=== PATIENT | female | born 1945 | race Caucasian/White ===

== ENCOUNTER 2016-06-02 13:56 | Outpatient (CLI) | END 2016-06-02 13:57 | disposition home or self-care (01) ==

== ENCOUNTER 2016-06-14 15:14 | Outpatient (CLI) | payer MEDICARE, OTHER | END 2016-06-14 15:15 | disposition home or self-care (01) | DX: I48.0 Paroxysmal atrial fibrillation (principal) ==

== ENCOUNTER 2016-06-29 13:30 | Outpatient (CLI) | payer MEDICARE, OTHER | END 2016-06-29 13:31 | disposition home or self-care (01) | DX: I48.0 Paroxysmal atrial fibrillation (principal); I50.32 Chronic diastolic (congestive) heart failure ==

== ENCOUNTER 2016-07-11 14:43 | Outpatient (CLI) | payer MEDICARE, OTHER | END 2016-07-11 14:44 | disposition home or self-care (01) | DX: I48.0 Paroxysmal atrial fibrillation (principal) ==

== ENCOUNTER 2016-07-14 11:02 | Outpatient (CLI) | payer MEDICARE, OTHER | END 2016-07-14 11:03 | disposition home or self-care (01) | DX: I48.0 Paroxysmal atrial fibrillation (principal) ==

== ENCOUNTER 2016-07-19 11:00 | Outpatient (CLI) | payer MEDICARE, OTHER | END 2016-07-19 11:01 | disposition home or self-care (01) | DX: I48.0 Paroxysmal atrial fibrillation (principal) ==

== ENCOUNTER 2016-08-10 08:00 | Outpatient (CLI) | payer MEDICARE, OTHER | END 2016-08-10 23:59 | DX: I48.0 Paroxysmal atrial fibrillation (principal) ==

== ENCOUNTER 2016-08-26 11:05 | Outpatient (CLI) | payer MEDICARE, OTHER | END 2016-08-26 11:06 | disposition home or self-care (01) | DX: I48.0 Paroxysmal atrial fibrillation (principal) ==

== ENCOUNTER 2016-09-05 08:23 | Outpatient (CLI) | payer MEDICARE, OTHER | END 2016-09-05 08:24 | disposition home or self-care (01) | DX: I48.0 Paroxysmal atrial fibrillation (principal) ==

== ENCOUNTER 2016-09-22 15:45 | Outpatient (CLI) | payer MEDICARE, OTHER | END 2016-09-22 23:59 | DX: I48.0 Paroxysmal atrial fibrillation (principal) ==

== ENCOUNTER 2016-10-01 09:49 | Emergency (ER) | payer MEDICARE, OTHER ==
[2016-10-01 09:58] VITALS: BP 111/71
--- NOTE | 2016-10-01 10:44 | XRAY Preliminary Report ---
Exam: XR Wrist 4 View LT IMPRESSION: Soft tissue swelling about the distal radius, ulna and carpus without underlying acute namrata ne or joint abnormality. [facility] SITE ID: [id number]
--- NOTE | 2016-10-01 10:46 | XRAY Report ---
EXAM: LEFT WRIST RADIOGRAPHY, 4 VIEWS EXAM DATE: 10/01/2016 10:29 AM. CLINICAL HISTORY: 71-year-old female post fall with left wrist pain. COMPARISON: None. TECHNIQUE: 3 views. FINDINGS: Bones: Small degenerative cysts in the lunate. Otherwise unremarkable. No fractures or acute bone les ions. 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 Joint spaces otherwise unremarkab le. No subluxations. Soft Tissues: Mild soft tissue swelling about the distal radius, ulna and carpus. No soft tissue gas or foreign body. IMPRESSION: Soft tissue swelling about the distal radius, ulna and carpus without underlying acute namrata ne or joint abnormality. [facility] Referring Provider Line: [phone] SITE ID: [id number]
[2016-10-01] MEDS ORDERED: HYDROcod/ACETAM 5/325 MG TABLET PO STA (12:22)
[2016-10-01] MEDS ORDERED: HYDROcod/ACETAM 5/325 MG TABLET ONE (12:24)
--- NOTE | 2016-10-01 12:24 | ED Physician Documentation ---
PD HPI UPPER EXT INJURY - Stated complaint Stated Complaint: L WRIST PAIN - Chief complaint Chief Complaint: Ext Problem - History obtained from History obtained from: Patient - History of Present Illness Location: Left (Fall on outstretched left wrist 5 days ago, developed increasing pain and swelling last night. 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 : None HEENT: None Psych: None Musculoskeletal: None Derm: None - Past Surgical History Past Surgical History: Yes Cardiovascular: Valve replacement - Present Medications Home Medications: Ambulatory Orders Medication Instructions Recorded Confirmed Albuterol Sulfate [Ventolin Hfa] 1 spray PO DAILY 07/13/15 07/13/15 Bupropion HCl [Bupropion HCl Sr] 150 mg PO DAILY 07/13/15 07/13/15 Citalopram [CeleXA] 40 mg PO DAILY 07/13/15 07/13/15 Docusate Sodium 250Mg Capsule 250 mg PO DAILY 07/13/15 07/13/15 [Colace 250Mg Capsule] Fluticasone Propionate [Flonase 1 spray PO DAILY 07/13/15 07/13/15 Allergy Relief] Folic Acid 1 mg PO DAILY 07/13/15 07/13/15 Furosemide 80 mg PO DAILY 07/13/15 07/13/15 Lipase/Protease/Amylase [Zenpep Dr 1 tab PO DAILY 07/13/15 07/13/15 10,000 Units Capsule] Metoprolol Tartrate 25 mg PO DAILY 07/13/15 07/13/15 Montelukast Sodium 10 mg PO DAILY 07/13/15 07/13/15 Musinex 1 tab PO DAILY 07/13/15 07/13/15 Nitroglycerin [Nitrostat] 0.4 mg PO DAILY 07/13/15 10/01/16 Potassium Chloride 20 meq PO DAILY 07/13/15 07/13/15 Pramipexole [Mirapex] 0.25 mg PO DAILY 07/13/15 07/13/15 Pravastatin Sodium 40 mg PO DAILY 07/13/15 07/13/15 Senna [Senokot] 8.6 mg PO DAILY 07/13/15 10/01/16 Vit D 1 tab PO DAILY 07/13/15 10/01/16 Warfarin Sodium 7.5 mg PO DAILY 07/13/15 10/01/16 HYDROcod/ACETAM 5/325 [[place] 5/325] 1 - 2 ea PO Q6H PRN #15 tablet 10/01/16 - Allergies Allergies/Adverse Reactions: Allergies Allergy/AdvReac Type Severity Reaction Status Date / Time meperidine HCl * Allergy Unknown Verified 07/13/15 14:50 [From Demerol] - Social History Does the pt smoke?: No Smoking Status: Never smoker Does the pt drink ETOH?: No Does the pt have substance abuse?: No - Immunizations Immunizations are current?: Yes - POLST Patient has POLST: No PD ED PE NORMAL - Vitals Vital signs reviewed: Yes - General General: Alert and oriented X 3, No acute distress - Neck Neck: Supple, no meningeal sign, No bony TTP - Extremities Extremities: Other (Dorsal wrist is mildly tender and swollen and she has difficulty with range of motion, NVI in the hand) - Neuro Neuro: Alert and oriented X 3, Normal speech - Psych Psych: Normal mood, Normal affect Results - Vitals Vitals: Vital Signs - 24 hr 10/01/16 09:55 Temperature 35.3 C L Heart Rate 75 Respiratory 18 Rate Blood Pressure 111/71 O2 Saturation 100 Oxygen O2 Source Room air - Rads (name of study) 4 view left wrist Radiology: EMP read contemporaneously (negative except swelling) Departure - Departure Disposition: 01 Home, Self Care Clinical Impression: Left wrist sprain Qualifiers: Encounter type: initial encounter Qualified Code(s): S63.502A - Unspecified sprain of left wrist, initial encounter Condition: Good Record reviewed to determine appropriate education?: Yes Instructions: ED Sprain Wrist, ED Splint Care Velcro Follow-Up: [facility] [Provider Group] - Within 1 week Prescriptions: HYDROcod/ACETAM 5/325 [[place] 5/325] 1 - 2 ea PO Q6H PRN #15 tablet PRN Reason: Pain Comments: Do not drink or drive while on narcotic pain medicine. Note that many narcotic pain relievers also contain tylenol/acetaminophen. Please ensure that your total dose of acetaminophen from all sources does not exceed 3 grams (3000mg) per day. You may constipated on this medication, take a stool softener such as "Colace" twice a day while you are on it. Also recommend a [id number] laxative such as senna or MiraLAX any day that you do not have a bowel movement. If you received narcotic pain medication in the emergency department, do not drive or operate machinery for the next 24 hours.
--- NOTE | 2016-10-01 18:00 | ED Physician Documentation ---
ED Addendum - Addendum Addendum: 10/01/16 18:00 She called in, pain is not controlled by Vicodin. She wondered if it might be gout. I discussed with her that was our diagnosis to make given her anticoagulated status, best test would be arthrocentesis. Regardless she wanted to try some gout medicine given that she's had ongoing occasional issues with the left big toe which might be gout as well. She was called in a prescription for colchicine, 0.6 mg #4 and Indocin 50 mg one tablet twice a day as needed #8.
== END 2016-10-01 12:34 | disposition home or self-care (01) ==
LOC: ED 09:49
DX: S63.502A Unspecified sprain of left wrist, initial encounter (principal); W19.XXXA Unspecified fall, initial encounter; Z95.2 Presence of prosthetic heart valve; Z79.01 Long term (current) use of anticoagulants
CPT/HCPCS: 73110; 99283; A9270

== ENCOUNTER 2016-10-01 21:58 | Emergency (ER) | payer MEDICARE, OTHER ==
--- NOTE | 2016-10-01 22:06 | ED Physician Documentation ---
History of Present Illness - Stated complaint Stated Complaint: L WRIST PAIN - Chief complaint Chief Complaint: Ext Problem - History obtained from History obtained from: Patient - History of Present Illness Timing: Yesterday Pain level max: 10 Pain level now: 10 Improved by: rest (keeping the wrist still) Worsened by: movement, palpation - Additonal information Additional information: c/o left wrist pain, gradual onset since yesterday morning, progressive in intensity and with increasing swelling decreasing ROM. She was T+R earlier today from this ED for same c/o, unremarkable xrays, rx vicodin. She returns due to inadequate pain relief with the vicodin. 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 HEENT: None Psych: None Musculoskeletal: None Derm: None - Past Surgical History Past Surgical History: Yes Cardiovascular: Valve replacement - Present Medications Home Medications: Ambulatory Orders Medication Instructions Recorded Confirmed Albuterol Sulfate [Ventolin Hfa] 1 spray PO DAILY 07/13/15 10/01/16 Bupropion HCl [Bupropion HCl Sr] 150 mg PO DAILY 07/13/15 10/01/16 Citalopram [CeleXA] 40 mg PO DAILY 07/13/15 10/01/16 Docusate Sodium 250Mg Capsule 250 mg PO DAILY 07/13/15 10/01/16 [Colace 250Mg Capsule] Fluticasone Propionate [Flonase 1 spray PO DAILY 07/13/15 10/01/16 Allergy Relief] Folic Acid 1 mg PO DAILY 07/13/15 10/01/16 Furosemide 80 mg PO DAILY 07/13/15 10/01/16 Lipase/Protease/Amylase [Zenpep Dr 1 tab PO DAILY 07/13/15 10/01/16 10,000 Units Capsule] Metoprolol Tartrate 25 mg PO DAILY 07/13/15 10/01/16 Montelukast Sodium 10 mg PO DAILY 07/13/15 10/01/16 Musinex 1 tab PO DAILY 07/13/15 10/01/16 Nitroglycerin [Nitrostat] 0.4 mg PO DAILY 07/13/15 10/01/16 Potassium Chloride 20 meq PO DAILY 07/13/15 10/01/16 Pramipexole [Mirapex] 0.25 mg PO DAILY 07/13/15 10/01/16 Pravastatin Sodium 40 mg PO DAILY 07/13/15 10/01/16 Senna [Senokot] 8.6 mg PO DAILY 07/13/15 10/01/16 Vit D 1 tab PO DAILY 07/13/15 10/01/16 Warfarin Sodium 7.5 mg PO DAILY 07/13/15 10/01/16 HYDROcod/ACETAM 5/325 [[place] 5/325] 1 - 2 ea PO Q6H PRN #15 tablet 10/01/1611/12 oxyCODONE/ACET 5/325 [Percocet 5 1 - 2 each PO Q6H PRN #14 tablet 10/02/16 mg/325 mg] - Allergies Allergies/Adverse Reactions: Allergies Allergy/AdvReac Type Severity Reaction Status Date / Time meperidine HCl * Allergy Unknown Verified 10/01/16 22:10 [From Demerol] - Social History Does the pt smoke?: No Smoking Status: Never smoker Does the pt drink ETOH?: No Does the pt have substance abuse?: No - Immunizations Immunizations are current?: Yes - POLST Patient has POLST: No PD ED PE NORMAL - Vitals Vital signs reviewed: Yes - General General: Alert and oriented X 3, Well developed/nourished, Other (appears to be in painful distress) - Neuro Neuro: No motor deficit, No sensory deficit PD ED PE EXPANDED - Extremities Extremities: Other (left wrist with mild-moderate swelling (predominantly dorsal aspect, extends to proximal hand), faint erythema, not increased warmth to touch compared to other wrist. very limited ROM (flex/ext) due to pain. mod- severe tenderness to palpation) Results - Vitals Vitals: Vital Signs - 24 hr 10/01/16 10/02/16 10/02/16 22:01 00:08 01:07 Temperature 37.5 C Heart Rate 75 76 75 Respiratory 16 15 15 Rate Blood Pressure 150/74 H 107/59 L 111/49 L O2 Saturation 100 99 96 Oxygen O2 Source Room air - Labs Labs: Laboratory Tests 10/01/16 10/01/16 10/01/16 22:24 22:41 22:41 WBC 9.2 RBC 4.11 L Hgb 13.4 Hct 39.7 MCV 96.8 MCH 32.7 H MCHC 33.8 RDW 13.7 Plt Count 196 MPV 8.8 Neut # 5.8 Lymph # 2.4 [place] # 0.9 Eos # 0.1 Baso # 0.0 Absolute Nucleated RBC 0.00 Nucleated RBCs 0.0 ESR 18 PT INR APTT C-Reactive Protein 1.8 H 10/01/16 22:41 WBC RBC Hgb Hct MCV MCH MCHC RDW Plt Count MPV Neut # Lymph # [place] # Eos # Baso # Absolute Nucleated RBC Nucleated RBCs ESR PT 79.0 H INR 6.9 H* APTT 62.9 H C-Reactive Protein PD MEDICAL DECISION MAKING - ED course Complexity details: reviewed old records, reviewed results, re-evaluated patient , considered differential, d/w patient ED course: afebrile, normal WBC and ESR, minimally elevated CRP. Good pain control was eventually achieved with multiple medications (indomethacin, colchicine, ativan , oxycodone, and dilaudid) Departure - Departure Disposition: Home, Self Care Clinical Impression: Arthritis Condition: Good Instructions: ED Arthritis Gout, ED Diet Gout Follow-Up: Juan José Kincaid MD [Primary Care Provider] - (Call Monday morning to arrange for next available appointment) Prescriptions: oxyCODONE/ACET 5/325 [Percocet 5 mg/325 mg] 1 - 2 each PO Q6H PRN #14 tablet PRN Reason: Pain Comments: You can take the percocet (oxycodone/acetaminophen) INSTEAD OF the Vicodin ( hydrocodone/acetaminophen); most people find percocet is more effective/ stronger for pain relief. 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 Capps faxed to your pharmacy later this morning when the pharmacy opens, and take those medications as prescribed. Your INR ("coumadin level") was a little higher than it is supposed to be. I recommend that you skip tonight's coumadin dose and resume taking it tomorrow evening (resume taking it 10/02/16) Discharge Date/Time: 10/02/16 02:02
[2016-10-01] MEDS ORDERED: oxyCODONE 5 MG TABLET PO STA (22:21)
[2016-10-01] MEDS ORDERED: COLCHICINE 0.6 MG TABLET PO STA (22:23)
[2016-10-01] MEDS ORDERED: INDOMETHACIN 25 MG CAPSULE PO STA (22:23)
[2016-10-01] MEDS ORDERED: oxyCODONE 5 MG TABLET ONE (22:26)
[2016-10-01] MEDS ORDERED: INDOMETHACIN 25 MG CAPSULE PO ONE (22:26)
[2016-10-01 22:56] LABS: BASOPHILS % (AUTO) 0.3 %; EOSINOPHILS # (AUTO) 0.1 10^3/uL (0.0-0.7); EOSINOPHILS % (AUTO) 0.9 %; HCT - HEMATOCRIT 39.7 % (37.0-47.0); HGB - HEMOGLOBIN 13.4 g/dL (12.0-16.0); LYMPHOCYTES # (AUTO) 2.4 10^3/uL (1.5-3.5); LYMPHOCYTES % (AUTO) 26.2 %; MEAN CORPUSCULAR HEMOGLOBIN 32.7 pg (27.0-31.0); MEAN CORPUSCULAR HGB CONC 33.8 g/dL (32.0-36.0); MEAN CORPUSCULAR VOLUME 96.8 fL (81.0-99.0); MEAN PLATELET VOLUME 8.8 fL (7.9-10.8); MONOCYTES # (AUTO) 0.9 10^3/uL (0.0-1.0); MONOCYTES % (AUTO) 9.7 %; NEUTROPHILS # (AUTO) 5.8 10^3/uL (1.5-6.6); NEUTROPHILS % (AUTO) 62.9 %; RED BLOOD COUNT 4.11 10^6/uL (4.20-5.40); RED CELL DISTRIBUTION WIDTH 13.7 % (12.0-15.0); UNCORRECTED WHITE BLOOD COUNT 9.2 x10^3/uL; WHITE BLOOD COUNT 9.2 x10^3/uL (4.8-10.8)
[2016-10-01 23:14] LABS: PARTIAL THROMBOPLASTIN TIME 62.9 secs (24.9-33.3)
[2016-10-01 23:31] LABS: INR 6.9 (0.8-1.2)
[2016-10-01] MEDS ORDERED: HYDROmorphone 1 MG/ML SYRINGE IM STA (23:33)
[2016-10-01] MEDS ORDERED: HYDROmorphone 1 MG/ML SYRINGE ONE (23:35)
[2016-10-02] MEDS ORDERED: HYDROmorphone 1 MG/ML SYRINGE ONE (00:26)
[2016-10-02] MEDS ORDERED: LORazepam 0.5 MG TABLET PO STA (00:35)
[2016-10-02] MEDS ORDERED: INDOMETHACIN 25 MG CAPSULE PO STA (00:35)
[2016-10-02] MEDS ORDERED: INDOMETHACIN 25 MG CAPSULE PO ONE (01:01)
[2016-10-02] MEDS ORDERED: LORazepam 0.5 MG TABLET ONE (01:01)
[2016-10-02 01:08] VITALS: BP 111/49
[2016-10-02] MEDS ORDERED: oxyCODONE/ACET 5/325 Prepack 4 PO STA (01:41)
[2016-10-02] MEDS ORDERED: oxyCODONE/ACET 5/325 Prepack 4 PO ONE (01:51)
== END 2016-10-02 02:02 | disposition home or self-care (01) ==
LOC: ED 21:58
DX: M19.032 Primary osteoarthritis, left wrist (principal); Z95.2 Presence of prosthetic heart valve; Z79.01 Long term (current) use of anticoagulants; S63.502A Unspecified sprain of left wrist, initial encounter; W19.XXXA Unspecified fall, initial encounter
CPT/HCPCS: 36415; 73110; 85025; 85610; 85651; 85730; 86140; 96372; 99283; 99284; A9270; J1170

== ENCOUNTER 2016-10-13 14:34 | Outpatient (CLI) | payer MEDICARE, OTHER | END 2016-10-13 14:35 | disposition home or self-care (01) | DX: I48.0 Paroxysmal atrial fibrillation (principal); M10.9 Gout, unspecified; N28.9 Disorder of kidney and ureter, unspecified ==

== ENCOUNTER 2016-10-19 10:50 | Outpatient (CLI) | payer MEDICARE, OTHER | END 2016-10-19 10:51 | disposition home or self-care (01) | LOC: LAB.F 10:50 | PROVIDERS: ATTEND Internal Medicine Cardiovascular Disease | DX: I48.0 Paroxysmal atrial fibrillation (principal) | CPT/HCPCS: 85610 ==

== ENCOUNTER 2016-10-28 11:11 | Outpatient (CLI) | payer MEDICARE, OTHER | END 2016-10-28 11:12 | disposition home or self-care (01) | LOC: LAB.F 11:11 | PROVIDERS: ATTEND Family Medicine | DX: M10.9 Gout, unspecified (principal); I48.0 Paroxysmal atrial fibrillation; N28.9 Disorder of kidney and ureter, unspecified | CPT/HCPCS: 85610 ==

== ENCOUNTER 2016-11-03 10:29 | Outpatient (CLI) | payer MEDICARE, OTHER ==
[2016-11-03 18:15] LABS: CHOL/HDL RATIO 1.9 (<4.4); CHOLESTEROL 119 mg/dL; HDL CHOLESTEROL 62 mg/dL; LDL/HDL RATIO 0.6 (<4.4); TRIGLYCERIDES 96 mg/dL; VLDL CHOLESTEROL 19 mg/dL
[2016-11-03 18:23] LABS: CALCIUM 9.4 mg/dL (8.5-10.3); CREATININE 0.7 mg/dL (0.4-1.0); POTASSIUM 3.7 mmol/L (3.5-5.0)
== END 2016-11-03 10:30 | disposition home or self-care (01) ==
LOC: LAB.F 10:29
PROVIDERS: ATTEND Internal Medicine Cardiovascular Disease
DX: I48.0 Paroxysmal atrial fibrillation (principal); E78.5 Hyperlipidemia, unspecified; N28.9 Disorder of kidney and ureter, unspecified; E87.6 Hypokalemia
CPT/HCPCS: 36415; 80048; 80061; 84450; 84460; 85610

== ENCOUNTER 2016-11-08 10:57 | Outpatient (CLI) | payer MEDICARE, OTHER | END 2016-11-08 10:58 | disposition home or self-care (01) | LOC: LAB.F 10:57 | PROVIDERS: ATTEND Internal Medicine Cardiovascular Disease | DX: I48.0 Paroxysmal atrial fibrillation (principal) | CPT/HCPCS: 85610 ==

== ENCOUNTER 2016-12-05 14:00 | Outpatient (CLI) | payer MEDICARE, OTHER ==
[2016-12-05 19:44] LABS: BASOPHILS % (AUTO) 0.6 %; EOSINOPHILS # (AUTO) 0.2 10^3/uL (0.0-0.7); EOSINOPHILS % (AUTO) 2.7 %; HCT - HEMATOCRIT 37.8 % (37.0-47.0); HGB - HEMOGLOBIN 12.9 g/dL (12.0-16.0); LYMPHOCYTES # (AUTO) 1.5 10^3/uL (1.5-3.5); LYMPHOCYTES % (AUTO) 21.5 %; MEAN CORPUSCULAR HEMOGLOBIN 33.6 pg (27.0-31.0); MEAN CORPUSCULAR HGB CONC 34.1 g/dL (32.0-36.0); MEAN CORPUSCULAR VOLUME 98.7 fL (81.0-99.0); MEAN PLATELET VOLUME 8.9 fL (7.9-10.8); MONOCYTES # (AUTO) 0.7 10^3/uL (0.0-1.0); MONOCYTES % (AUTO) 9.8 %; NEUTROPHILS # (AUTO) 4.4 10^3/uL (1.5-6.6); NEUTROPHILS % (AUTO) 65.4 %; RED BLOOD COUNT 3.83 10^6/uL (4.20-5.40); RED CELL DISTRIBUTION WIDTH 13.6 % (12.0-15.0); UNCORRECTED WHITE BLOOD COUNT 6.8 x10^3/uL; WHITE BLOOD COUNT 6.8 x10^3/uL (4.8-10.8)
[2016-12-05 20:01] LABS: CALCIUM 8.9 mg/dL (8.5-10.3); CREATININE 0.6 mg/dL (0.4-1.0); POTASSIUM 3.5 mmol/L (3.5-5.0); URIC ACID 5.2 mg/dL (2.6-7.2)
== END 2016-12-05 14:01 | disposition home or self-care (01) ==
LOC: LAB.F 14:00
PROVIDERS: ATTEND Family Medicine
DX: I48.0 Paroxysmal atrial fibrillation (principal); N28.9 Disorder of kidney and ureter, unspecified
CPT/HCPCS: 36415; 80048; 84550; 85025; 85610

== ENCOUNTER 2016-12-13 08:00 | Outpatient (CLI) | payer MEDICARE, OTHER ==
[2016-12-13 19:03] LABS: ALBUMIN/GLOBULIN RATIO 1.4 (1.0-2.2); BILIRUBIN,TOTAL 0.7 mg/dL (0.2-1.0); CALCIUM 8.9 mg/dL (8.5-10.3); CREATININE 0.8 mg/dL (0.4-1.0); POTASSIUM 3.9 mmol/L (3.5-5.0); TOTAL PROTEIN 7.1 g/dL (6.7-8.2); URIC ACID 5.3 mg/dL (2.6-7.2)
[2016-12-13 19:31] LABS: BASOPHILS % (AUTO) 0.8 %; EOSINOPHILS # (AUTO) 0.1 10^3/uL (0.0-0.7); EOSINOPHILS % (AUTO) 2.1 %; HCT - HEMATOCRIT 37.7 % (37.0-47.0); HGB - HEMOGLOBIN 12.6 g/dL (12.0-16.0); LYMPHOCYTES # (AUTO) 1.1 10^3/uL (1.5-3.5); LYMPHOCYTES % (AUTO) 19.7 %; MEAN CORPUSCULAR HEMOGLOBIN 33.1 pg (27.0-31.0); MEAN CORPUSCULAR HGB CONC 33.5 g/dL (32.0-36.0); MEAN CORPUSCULAR VOLUME 98.9 fL (81.0-99.0); MEAN PLATELET VOLUME 8.3 fL (7.9-10.8); MONOCYTES # (AUTO) 0.5 10^3/uL (0.0-1.0); MONOCYTES % (AUTO) 9.6 %; NEUTROPHILS # (AUTO) 3.7 10^3/uL (1.5-6.6); NEUTROPHILS % (AUTO) 67.8 %; RED BLOOD COUNT 3.82 10^6/uL (4.20-5.40); RED CELL DISTRIBUTION WIDTH 13.6 % (12.0-15.0); UNCORRECTED WHITE BLOOD COUNT 5.5 x10^3/uL; WHITE BLOOD COUNT 5.5 x10^3/uL (4.8-10.8)
== END 2016-12-13 23:59 | disposition home or self-care (01) ==
LOC: LAB.F 08:00
PROVIDERS: ATTEND Physician Assistant Medical
DX: B35.6 Tinea cruris (principal); N28.9 Disorder of kidney and ureter, unspecified; I48.0 Paroxysmal atrial fibrillation; E87.6 Hypokalemia; M10.9 Gout, unspecified; Z79.899 Other long term (current) drug therapy
CPT/HCPCS: 36415; 80048; 80053; 84550; 85025; 85610

== ENCOUNTER 2016-12-13 08:00 | Outpatient (CLI) | payer MEDICARE, OTHER | END 2016-12-13 08:01 | disposition home or self-care (01) | LOC: LAB 08:00 | PROVIDERS: ATTEND Internal Medicine Cardiovascular Disease | DX: Z53.9 Procedure and treatment not carried out, unspecified reason (principal) ==

== ENCOUNTER 2016-12-23 11:13 | Outpatient (CLI) | payer MEDICARE, OTHER | END 2016-12-23 11:14 | disposition home or self-care (01) | LOC: LAB.F 11:13 | PROVIDERS: ATTEND Internal Medicine Cardiovascular Disease | DX: I48.0 Paroxysmal atrial fibrillation (principal) | CPT/HCPCS: 85610 ==

== ENCOUNTER 2017-01-04 15:08 | Outpatient (CLI) | payer MEDICARE, OTHER | END 2017-01-04 15:09 | disposition home or self-care (01) | LOC: LAB.F 15:08 | PROVIDERS: ATTEND Internal Medicine Cardiovascular Disease | DX: I48.0 Paroxysmal atrial fibrillation (principal) | CPT/HCPCS: 85610 ==

== ENCOUNTER 2017-01-19 10:39 | Outpatient (CLI) | payer MEDICARE, OTHER | END 2017-01-19 10:40 | disposition home or self-care (01) | LOC: LAB.F 10:39 | PROVIDERS: ATTEND Internal Medicine Cardiovascular Disease | DX: I48.0 Paroxysmal atrial fibrillation (principal) | CPT/HCPCS: 85610 ==

== ENCOUNTER 2017-01-27 15:21 | Outpatient (CLI) | payer MEDICARE, OTHER | END 2017-01-27 15:22 | disposition home or self-care (01) | LOC: LAB.F 15:21 | PROVIDERS: ATTEND Internal Medicine Cardiovascular Disease | DX: I48.0 Paroxysmal atrial fibrillation (principal) | CPT/HCPCS: 85610 ==

== ENCOUNTER 2017-02-13 14:23 | Outpatient (CLI) | payer MEDICARE, OTHER | END 2017-02-13 14:24 | disposition home or self-care (01) | LOC: LAB.F 14:23 | PROVIDERS: ATTEND Internal Medicine Cardiovascular Disease | DX: I48.0 Paroxysmal atrial fibrillation (principal) | CPT/HCPCS: 85610 ==

== ENCOUNTER 2017-02-22 08:00 | Outpatient (CLI) | payer MEDICARE, OTHER ==
[2017-02-22 18:02] LABS: BILIRUBIN,URINE NEGATIVE (NEGATIVE)
[2017-02-22 18:07] LABS: UA CHARGE (STRIP ONLY) YES; UR CULTURE IF IND NOT INDICATED
== END 2017-02-22 08:01 | disposition home or self-care (01) ==
LOC: LAB.N 08:00
PROVIDERS: ATTEND Physician Assistant Medical
DX: I48.0 Paroxysmal atrial fibrillation (principal); R30.0 Dysuria
CPT/HCPCS: 81001; 81003; 85610; 87086

== ENCOUNTER 2017-03-02 14:14 | Outpatient (CLI) | payer MEDICARE, OTHER | END 2017-03-02 14:15 | disposition home or self-care (01) | LOC: LAB.F 14:14 | PROVIDERS: ATTEND Physician Assistant Medical | DX: I48.0 Paroxysmal atrial fibrillation (principal); M10.9 Gout, unspecified | CPT/HCPCS: 36415; 84550; 85610 ==

== ENCOUNTER 2017-03-13 07:53 | Outpatient (CLI) | payer MEDICARE, OTHER | END 2017-03-13 07:54 | disposition home or self-care (01) | LOC: LAB.F 07:53 | PROVIDERS: ATTEND Internal Medicine Cardiovascular Disease | DX: I48.0 Paroxysmal atrial fibrillation (principal) | CPT/HCPCS: 85610 ==

== ENCOUNTER 2017-03-21 09:43 | Outpatient (CLI) | payer MEDICARE, OTHER | END 2017-03-21 09:44 | disposition home or self-care (01) | LOC: LAB.F 09:43 | PROVIDERS: ATTEND Internal Medicine Cardiovascular Disease | DX: I48.0 Paroxysmal atrial fibrillation (principal) | CPT/HCPCS: 85610 ==

== ENCOUNTER 2017-03-23 14:57 | Outpatient (CLI) | payer MEDICARE, OTHER ==
[2017-03-27 12:51] LABS: ANA SCREEN POSITIVE (NEGATIVE)
== END 2017-03-23 14:58 | disposition home or self-care (01) ==
LOC: LAB.F 14:57
PROVIDERS: ATTEND Physician Assistant Medical
DX: M25.50 Pain in unspecified joint (principal); R22.33 Localized swelling, mass and lump, upper limb, bilateral
CPT/HCPCS: 36415; 85651; 86038; 86140; 86200; 86430

== ENCOUNTER 2017-04-12 11:01 | Outpatient (CLI) | payer MEDICARE, OTHER | END 2017-04-12 11:02 | disposition home or self-care (01) | LOC: LAB.F 11:01 | PROVIDERS: ATTEND Internal Medicine Cardiovascular Disease | DX: I48.0 Paroxysmal atrial fibrillation (principal) | CPT/HCPCS: 85610 ==

== ENCOUNTER 2017-05-06 20:15 | Emergency (ER) | payer MEDICARE, OTHER ==
[2017-05-06] MEDS ORDERED: SODIUM CHLORIDE 0.9% 1,000 ML IV ONE (20:18)
--- NOTE | 2017-05-06 20:43 | ED Physician Documentation ---
PD HPI GI BLEED - Stated complaint Stated Complaint: BLEEDING - Chief complaint Chief Complaint: Abd Pain - History obtained from History obtained from: Patient, Family - History of Present Illness Timing - onset: Today (1) Timing - duration: Days (1) Timing - details: Abrupt onset Pain level max: 0 Pain level now: 0 Associated symptoms: Maroon stool Contributing factors: Other (colonoscopy with multiple polypectomies 3 days ago. ) Improved by: Other (nothing) Worsened by: Other (BM) Similar symptoms before: Has not had sx before Recently seen: Clinic (colonoscopy with polypectomy) Review of Systems Ten Systems: 10 systems reviewed and negative Constitutional: denies: Fever, Chills Ears: denies: Ear pain Nose: denies: Rhinorrhea / runny nose, Congestion, Epistaxis, Sinus pressure / pain Throat: denies: Sore throat Cardiac: denies: Chest pain / pressure Respiratory: reports: Wheezing (unchanged) GI: denies: Abdominal Pain, Nausea, Vomiting, Diarrhea Skin: denies: Rash Musculoskeletal: denies: Neck pain, Back pain Neurologic: denies: Headache PD PAST MEDICAL HISTORY - Past Medical History Past Medical History: Yes Cardiovascular: Valve disorder Respiratory: None Neuro: None Endocrine/Autoimmune: None GI: None 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 : None HEENT: None Psych: None Musculoskeletal: None Derm: None - Past Surgical History Past Surgical History: Yes Cardiovascular: Valve replacement - Present Medications Home Medications: Ambulatory Orders Medication Instructions Recorded Confirmed Albuterol Sulfate [Ventolin Hfa] 1 spray PO DAILY 07/13/15 05/06/17 Bupropion HCl [Bupropion HCl Sr] 150 mg PO DAILY 07/13/15 05/06/17 Citalopram [CeleXA] 40 mg PO DAILY 07/13/15 05/06/17 Docusate Sodium 250Mg Capsule 250 mg PO DAILY 07/13/15 05/06/17 [Colace 250Mg Capsule] Fluticasone Propionate [Flonase 1 spray PO DAILY 07/13/15 05/06/17 Allergy Relief] Folic Acid 1 mg PO DAILY 07/13/15 05/06/17 Furosemide 80 mg PO DAILY 07/13/15 05/06/17 Lipase/Protease/Amylase [Zenpep Dr 1 tab PO DAILY 07/13/15 05/06/17 10,000 Units Capsule] Metoprolol Tartrate 25 mg PO DAILY 07/13/15 05/06/17 Montelukast Sodium 10 mg PO DAILY 07/13/15 05/06/17 Musinex 1 tab PO DAILY 07/13/15 05/06/17 Nitroglycerin [Nitrostat] 0.4 mg PO DAILY 07/13/15 05/06/17 Potassium Chloride 20 meq PO DAILY 07/13/15 05/06/17 Pramipexole [Mirapex] 0.25 mg PO DAILY 07/13/15 05/06/17 Pravastatin Sodium 40 mg PO DAILY 07/13/15 05/06/17 Senna [Senokot] 8.6 mg PO DAILY 07/13/15 05/06/17 Vit D 1 tab PO DAILY 07/13/15 05/06/17 Warfarin Sodium 7.5 mg PO DAILY 07/13/15 05/06/17 HYDROcod/ACETAM 5/325 [[place] 5/325] 1 - 2 ea PO Q6H PRN #15 tablet 10/01/1602/12 oxyCODONE/ACET 5/325 [Percocet 5 1 - 2 each PO Q6H PRN #14 tablet 10/02/1605/06 mg/325 mg] - Allergies Allergies/Adverse Reactions: Allergies Allergy/AdvReac Type Severity Reaction Status Date / Time meperidine HCl * Allergy Unknown Verified 10/01/16 22:10 [From Demerol] simvastatin AdvReac Unknown Verified 05/06/17 20:21 - Social History Does the pt smoke?: No Smoking Status: Never smoker Does the pt drink ETOH?: No Does the pt have substance abuse?: No - Immunizations Immunizations are current?: Yes - POLST Patient has POLST: No PD ED PE NORMAL - Vitals Vital signs reviewed: Yes - General General: Alert and oriented X 3, No acute distress, Well developed/nourished - HEENT HEENT: PERRL, Moist mucous membranes - Neck Neck: Supple, no meningeal sign - Cardiac Cardiac: RRR, Strong equal pulses - Respiratory Respiratory: No respiratory distress, Other (mild wheeze B) - Abdomen Abdomen: Soft, Non tender, Non distended - Derm Derm: Warm and dry, No rash - Extremities Extremities: No edema, No calf tenderness / cord - Neuro Neuro: Alert and oriented X 3 - Psych Psych: Normal mood, Normal affect Results - Vitals Vitals: Vital Signs - 24 hr 05/06/17 05/06/17 20:19 22:18 Temperature 36.4 C L 36.7 C Heart Rate 75 75 Respiratory 16 18 Rate Blood Pressure 150/79 H 107/61 O2 Saturation 100 100 Oxygen O2 Source Room air - Labs Labs: Laboratory Tests 05/06/17 05/06/17 05/06/17 20:42 20:42 20:42 WBC 6.4 RBC 3.68 L Hgb 12.5 Hct 36.2 L MCV 98.5 MCH 33.9 H MCHC 34.4 RDW 13.6 Plt Count 206 MPV 8.3 Neut # 3.8 Lymph # 1.9 [place] # 0.7 Eos # 0.0 Baso # 0.0 Absolute Nucleated RBC 0.00 Nucleated RBC % 0.0 PT 14.3 H INR 1.3 H Sodium 139 Potassium 3.4 L Chloride 101 Carbon Dioxide 28 Anion Gap 10.0 BUN 15 Creatinine 0.7 Estimated GFR (MDRD) 82 L Glucose 78 Calcium 8.9 Total Bilirubin 0.7 AST 33 ALT 26 Alkaline Phosphatase 48 Total Protein 7.8 Albumin 4.7 Globulin 3.1 Albumin/Globulin Ratio 1.5 Lipase 27 Blood Type Antibody Screen 05/06/17 20:42 WBC RBC Hgb Hct MCV MCH MCHC RDW Plt Count MPV Neut # Lymph # [place] # Eos # Baso # Absolute Nucleated RBC Nucleated RBC % PT INR Sodium Potassium Chloride Carbon Dioxide Anion Gap BUN Creatinine Estimated GFR (MDRD) Glucose Calcium Total Bilirubin AST ALT Alkaline Phosphatase Total Protein Albumin Globulin Albumin/Globulin Ratio Lipase Blood Type A POSITIVE Antibody Screen NEGATIVE PD MEDICAL DECISION MAKING - ED course Complexity details: reviewed results, re-evaluated patient, considered differential, d/w patient, d/w family, d/w performance consultant ED course: Patient is a 71-year-old female presents to the emergency department with hematochezia status post a colonoscopy 2 days ago. Restart her warfarin and Lovenox last night. No recurrent bleeding in the emergency department. Hemoglobin and hematocrit are stable. Vitals are normal. She is asymptomatic otherwise. Discussed the case with Dr. Gutierrez, GI on-call, who recommends continuing the Lovenox and warfarin at this time. Recommend repeat H&H tomorrow or Monday. Patient will follow up with her doctor on [place] for repeat H&H. Patient was also given a spacer and spacer teaching for her albuterol inhaler. Wheezing resolved. We will have her follow-up with her doctor for further care. Patient counseled regarding signs and symptoms for which I believe and urgent re-evaluation would be necessary. Patient with good understanding of and agreement to plan and is comfortable going home at this time This document was made in part using voice recognition software. While efforts are made to proofread this document, sound alike and grammatical errors may occur. Departure - Departure Disposition: Home, Self Care Clinical Impression: Hematochezia Condition: Good Instructions: ED Hematochezia Stable Follow-Up: Heavenly Caceres PA-C [Provider Admit Priv/Credential] - Within 3 Days Comments: Return if you worsen, especially for lightheadedness, dizziness, or shortness of breath. You should have your blood counts rechecked on Monday with your doctor. I spoke with Dr. Brenda love and she recommends continuing the lovenox and coumadin as prescribed at this time. For your asthma, you should use the spacer whenever possible with your inhaler. You should talk to your doctor about changing the montelukast to another medication that may work better for jail control of your asthma. You may do better with something such as pulmicort or qvar rather than the montelukast. Discharge Date/Time: 05/06/17 22:20
[2017-05-06 20:57] LABS: BASOPHILS % (AUTO) 0.5 %; EOSINOPHILS % (AUTO) 0.6 %; HGB - HEMOGLOBIN 12.5 g/dL (12.0-16.0); LYMPHOCYTES # (AUTO) 1.9 10^3/uL (1.5-3.5); LYMPHOCYTES % (AUTO) 29.4 %; MEAN CORPUSCULAR HEMOGLOBIN 33.9 pg (27.0-31.0); MEAN CORPUSCULAR HGB CONC 34.4 g/dL (32.0-36.0); MEAN CORPUSCULAR VOLUME 98.5 fL (81.0-99.0); MEAN PLATELET VOLUME 8.3 fL (7.9-10.8); MONOCYTES # (AUTO) 0.7 10^3/uL (0.0-1.0); MONOCYTES % (AUTO) 10.4 %; NEUTROPHILS # (AUTO) 3.8 10^3/uL (1.5-6.6); NEUTROPHILS % (AUTO) 59.1 %; PLT - PLATELET COUNT 206 10^3/uL (130-450); RED BLOOD COUNT 3.68 10^6/uL (4.20-5.40); RED CELL DISTRIBUTION WIDTH 13.6 % (12.0-15.0); WHITE BLOOD COUNT 6.4 x10^3/uL (4.8-10.8)
[2017-05-06 21:03] LABS: ALBUMIN 4.7 g/dL (3.2-5.5); ALBUMIN/GLOBULIN RATIO 1.5 (1.0-2.2); BILIRUBIN,TOTAL 0.7 mg/dL (0.2-1.0); CALCIUM 8.9 mg/dL (8.5-10.3); CREATININE 0.7 mg/dL (0.4-1.0); TOTAL PROTEIN 7.8 g/dL (6.7-8.2)
[2017-05-06 21:04] LABS: INR 1.3 (0.8-1.2); PT - PROTHROMBIN TIME 14.3 secs (9.9-12.6)
[2017-05-06 22:20] VITALS: BP 107/61
== END 2017-05-06 22:20 | disposition home or self-care (01) ==
LOC: ED 20:15
DX: K92.1 Melena (principal); Z98.890 Other specified postprocedural states; Z95.2 Presence of prosthetic heart valve; J45.909 Unspecified asthma, uncomplicated
CPT/HCPCS: 36415; 80053; 83690; 85025; 85610; 86850; 86900; 86901; 94664; 96360; 99283; 99284

== ENCOUNTER 2017-05-08 12:33 | Outpatient (CLI) | payer MEDICARE, OTHER | END 2017-05-08 12:34 | disposition home or self-care (01) | LOC: LAB 12:33 | PROVIDERS: ATTEND Internal Medicine Cardiovascular Disease | DX: I48.0 Paroxysmal atrial fibrillation (principal) | CPT/HCPCS: 85610 ==

== ENCOUNTER 2017-05-10 13:37 | Outpatient (CLI) | payer MEDICARE, OTHER | END 2017-05-10 13:38 | disposition home or self-care (01) | LOC: LAB.F 13:37 | PROVIDERS: ATTEND Internal Medicine Cardiovascular Disease | DX: I48.0 Paroxysmal atrial fibrillation (principal); B35.6 Tinea cruris; Z79.899 Other long term (current) drug therapy | CPT/HCPCS: 85610 ==

== ENCOUNTER 2017-05-15 08:31 | Outpatient (CLI) | payer MEDICARE, OTHER | END 2017-05-15 08:32 | disposition short-term general hospital (02) | LOC: EMS 08:31 | PROVIDERS: ATTEND Surgery | DX: R07.9 Chest pain, unspecified (principal); R06.02 Shortness of breath | CPT/HCPCS: A0425; A0427 ==

== ENCOUNTER 2017-05-24 14:58 | Outpatient (CLI) | payer MEDICARE, OTHER | END 2017-05-24 14:59 | disposition home or self-care (01) | LOC: LAB.F 14:58 | PROVIDERS: ATTEND Internal Medicine Cardiovascular Disease | DX: I48.0 Paroxysmal atrial fibrillation (principal) | CPT/HCPCS: 85610 ==

== ENCOUNTER 2017-06-01 08:00 | Outpatient (CLI) | payer MEDICARE, OTHER | END 2017-06-01 08:01 | disposition home or self-care (01) | LOC: LAB.R 08:00 | PROVIDERS: ATTEND Internal Medicine Cardiovascular Disease | DX: I48.0 Paroxysmal atrial fibrillation (principal) | CPT/HCPCS: 85610 ==

== ENCOUNTER 2017-10-24 08:00 | Outpatient (CLI) | payer MEDICARE, OTHER ==
[2017-10-25 10:45] LABS: BASOPHILS % (AUTO) 0.7 %; EOSINOPHILS # (AUTO) 0.1 10^3/uL (0.0-0.7); EOSINOPHILS % (AUTO) 0.8 %; HGB - HEMOGLOBIN 13.1 g/dL (12.0-16.0); LYMPHOCYTES # (AUTO) 1.9 10^3/uL (1.5-3.5); LYMPHOCYTES % (AUTO) 28.2 %; MEAN CORPUSCULAR HEMOGLOBIN 33.4 pg (27.0-31.0); MEAN CORPUSCULAR HGB CONC 33.7 g/dL (32.0-36.0); MEAN CORPUSCULAR VOLUME 99.1 fL (81.0-99.0); MEAN PLATELET VOLUME 9.6 fL (7.9-10.8); MONOCYTES # (AUTO) 0.6 10^3/uL (0.0-1.0); MONOCYTES % (AUTO) 8.8 %; NEUTROPHILS # (AUTO) 4.1 10^3/uL (1.5-6.6); NEUTROPHILS % (AUTO) 61.5 %; PLT - PLATELET COUNT 186 10^3/uL (130-450); RED BLOOD COUNT 3.93 10^6/uL (4.20-5.40); WHITE BLOOD COUNT 6.6 x10^3/uL (4.8-10.8)
[2017-10-25 11:17] LABS: % IRON SATURATION 18 % (20-50); IRON 61 ug/dL (28-170); TOTAL IRON BINDING CAPACITY 339 ug/dL (250-450); TRANSFERRIN 242 mg/dL (192-382)
== END 2017-10-24 08:01 ==
LOC: LAB.F 08:00
PROVIDERS: ATTEND Internal Medicine Gastroenterology
DX: D62 Acute posthemorrhagic anemia (principal); I48.91 Unspecified atrial fibrillation; Z79.01 Long term (current) use of anticoagulants; K21.9 Gastro-esophageal reflux disease without esophagitis
CPT/HCPCS: 36415; 82728; 83540; 84466; 85025

== ENCOUNTER 2017-10-24 15:03 | Outpatient (CLI) | payer MEDICARE, OTHER | END 2017-10-24 15:04 | disposition home or self-care (01) | LOC: LAB.F 15:03 | PROVIDERS: ATTEND Internal Medicine Gastroenterology | DX: D62 Acute posthemorrhagic anemia (principal); I48.91 Unspecified atrial fibrillation; Z79.01 Long term (current) use of anticoagulants; K21.9 Gastro-esophageal reflux disease without esophagitis ==

== ENCOUNTER 2017-12-11 11:16 | Emergency (ER) | payer MEDICARE, OTHER ==
[2017-12-11 11:26] VITALS: BP 123/73
[2017-12-11] MEDS ORDERED: TETANUS/DIPHTHERIA/PERTUSSIS 0.5 ML SYRINGE IM ONE (13:04)
--- NOTE | 2017-12-11 13:05 | ED Physician Documentation ---
PD HPI LOWER EXT INJURY - Stated complaint Stated Complaint: GLF/ LEG WOUND - Chief complaint Chief Complaint: Wound - History obtained from History obtained from: Patient, Family - History of Present Illness PD HPI LOW EXT INJURY LOCATION: Left, Lower leg Type of injury: Blunt / blow Where injury occurred: Work Timing - onset: How many days ago (5) Timing - duration: Days (5) Timing - details: Abrupt onset, Still present Improved by: Rest Worsened by: Moving, Palpating Associated symptoms: Discolored Contributing factors: Anticoagulated Similar symptoms before: Has not had sx before Recently seen: Clinic - Additional information Additional information: 72-year-old female on Coumadin with [address] has work and injured herself with bruises to her neck and chin as well as her left calf. The other bruises appear to be healing up well the left calf appears to have some surrounding erythema and increasing pain. She believes this looks like it is infected. Review of Systems Constitutional: denies: Fever, Myalgias Eyes: denies: Decreased vision Ears: denies: Ear pain Nose: denies: Congestion Throat: denies: Sore throat Cardiac: denies: Chest pain / pressure, Palpitations Respiratory: denies: Dyspnea, Cough GI: denies: Abdominal Pain, Nausea, Vomiting : denies: Dysuria, Frequency Skin: reports: Abrasion (s) Musculoskeletal: reports: Extremity pain. 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 : None HEENT: None Psych: None Musculoskeletal: None Derm: None Other Past Medical History: possible infection in small intestine - Past Surgical History Past Surgical History: Yes Cardiovascular: Valve replacement - Present Medications Home Medications: Ambulatory Orders Medication Instructions Recorded Confirmed Allopurinol 1 tab PO DAILY 12/11/17 12/11/17 Budesonide/Formoterol Fumarate 2 puffs PO BID 12/11/17 12/11/17 [Symbicort 160-4.5 Mcg Inhaler] Bupropion HCl [Bupropion HCl Sr] 1 tab PO BID 12/11/17 12/11/17 Colchicine [Colcrys] 1 tab PO DAILY 12/11/17 12/11/17 Folic Acid 1 tab PO DAILY 12/11/17 12/11/17 Furosemide 2 tab PO BID 12/11/17 12/11/17 Metoprolol Succinate 1 tab PO DAILY 12/11/17 12/11/17 Montelukast Sodium 1 tab PO DAILY 12/11/17 12/11/17 Nitroglycerin [Nitroglycerin Patch 1 patch TOP PRN PRN 12/11/17 12/11/17 (0.4MG/HR)] Nitroglycerin [Nitrostat] 1 tab SQ PRN PRN 12/11/17 12/11/17 Omeprazole 1 tab PO BID 12/11/17 12/11/17 Potassium Chloride 20 meq PO DAILY 12/11/17 12/11/17 Pramipexole [Mirapex] 2 tab PO DAILY 12/11/17 12/11/17 Sucralfate 1 tab PO Q6H 12/11/17 12/11/17 Sulfamethoxazole/Trimethoprim 1 each PO BID #14 tablet 12/11/17 [Sulfamethoxazole-Tmp Ds Tablet] Venlafaxine [Effexor] 1 tab PO BID 12/11/17 12/11/17 Warfarin [Coumadin] 1 tab PO DAILY 12/11/17 12/11/17 Warfarin [Coumadin] 7.5 mg PO DAILY 12/11/17 12/11/17 rifAXIMin [Xifaxan] 1 tab PO TID 12/11/17 12/11/17 traZODone [Desyrel] 1 tab PO DAILY 12/11/17 12/11/17 - Allergies Allergies/Adverse Reactions: Allergies Allergy/AdvReac Type Severity Reaction Status Date / Time meperidine HCl * Allergy Unknown Verified 12/11/17 11:26 [From Demerol] simvastatin AdvReac Unknown Verified 12/11/17 11:26 - Social History Does the pt smoke?: No Smoking Status: Never smoker Does the pt drink ETOH?: No Does the pt have substance abuse?: No - Immunizations Immunizations are current?: Yes - POLST Patient has POLST: No PD ED PE NORMAL - Vitals Vital signs reviewed: Yes (normal ) - General General: Alert and oriented X 3, No acute distress, Well developed/nourished - HEENT HEENT: Atraumatic, PERRL, EOMI - Neck Neck: Supple, no meningeal sign - Respiratory Respiratory: No respiratory distress - Back Back: No CVA TTP, No spinal TTP - Derm Derm: Normal color, Warm and dry - Extremities Extremities: No deformity, No edema, Other (on the anterior calf there are 2 abrasions next to each other and both have surrounding erythema and have joined together. The aere is aobut 3cm in sized and this is over the tibia. There is tenderness and no fluctuance. ) - Neuro Neuro: Alert and oriented X 3, No motor deficit, No sensory deficit, Normal speech Eye Opening: Spontaneous Motor: Obeys Commands Verbal: Oriented GCS Score: 15 - Psych Psych: Normal mood, Normal affect Results - Vitals Vitals: Vital Signs - 24 hr 12/11/17 11:19 Temperature 36.1 C L Heart Rate 75 Respiratory 16 Rate Blood Pressure 123/73 O2 Saturation 99 Oxygen O2 Source Room air PD MEDICAL DECISION MAKING - ED course Complexity details: reviewed old records, considered differential, d/w patient, d/w family ED course: 72-year-old female with bruises to the left calf appears to have superficial infection we will place her on some Septra. I have encouraged her to do some warm compresses. - Sepsis Event Vital Signs: Vital Signs - 24 hr 12/11/17 11:19 Temperature 36.1 C L Heart Rate 75 Respiratory 16 Rate Blood Pressure 123/73 O2 Saturation 99 Oxygen O2 Source Room air Departure - Departure Disposition: 01 Home, Self Care Clinical Impression: Infected wound Condition: Stable Instructions: ED Staph Infec Abx Tx Only Follow-Up: Cisco Richter MD [Primary Care Provider] - Prescriptions: Sulfamethoxazole/Trimethoprim [Sulfamethoxazole-Tmp Ds Tablet] 1 each PO BID # 14 tablet
== END 2017-12-11 13:24 | disposition home or self-care (01) ==
LOC: ED 11:16
DX: S80.812A Abrasion, left lower leg, initial encounter (principal); L08.9 Local infection of the skin and subcutaneous tissue, unspecified; Z79.01 Long term (current) use of anticoagulants; Z95.2 Presence of prosthetic heart valve; W19.XXXA Unspecified fall, initial encounter; Y99.0 Civilian activity done for income or pay
CPT/HCPCS: 85610; 90471; 99283

== ENCOUNTER 2018-04-25 10:20 | Outpatient (CLI) | payer MEDICARE, OTHER ==
[2018-04-25 18:16] LABS: ALT ALANINE AMINOTRANSFERASE 23 IU/L (10-60); AST ASPARTATE AMINOTRANSFERASE 28 IU/L (10-42); CHOL/HDL RATIO 5.7 (<4.4); CHOLESTEROL 297 mg/dL; HDL CHOLESTEROL 52 mg/dL; LDL CHOLESTEROL,CALCULATED 190 mg/dL; LDL/HDL RATIO 3.7 (<4.4); VLDL CHOLESTEROL 55 mg/dL
[2018-04-27 16:52] LABS: CREATININE 0.9 mg/dL (0.4-1.0)
== END 2018-04-25 10:21 | disposition home or self-care (01) ==
LOC: LAB.F 10:20
PROVIDERS: ATTEND Internal Medicine Cardiovascular Disease
DX: I25.10 Atherosclerotic heart disease of native coronary artery without angina pectoris (principal); I50.32 Chronic diastolic (congestive) heart failure; E78.5 Hyperlipidemia, unspecified; Z95.0 Presence of cardiac pacemaker; I48.0 Paroxysmal atrial fibrillation
CPT/HCPCS: 36415; 80061; 82565; 83721; 83735; 84450; 84460; 85610

== ENCOUNTER 2018-05-28 12:08 | Outpatient (CLI) | payer MEDICARE, OTHER | END 2018-05-28 12:09 | disposition short-term general hospital (02) | LOC: EMS 12:08 | PROVIDERS: ATTEND Surgery | DX: R42 Dizziness and giddiness (principal); K62.5 Hemorrhage of anus and rectum | CPT/HCPCS: A0170; A0425; A0427 ==

== ENCOUNTER 2018-06-19 15:15 | Outpatient (CLI) | payer MEDICARE, OTHER ==
[2018-06-19 18:06] LABS: BASOPHILS % (AUTO) 0.4 %; EOSINOPHILS # (AUTO) 0.1 10^3/uL (0.0-0.7); EOSINOPHILS % (AUTO) 1.4 %; HGB - HEMOGLOBIN 12.8 g/dL (12.0-16.0); LYMPHOCYTES # (AUTO) 1.5 10^3/uL (1.5-3.5); LYMPHOCYTES % (AUTO) 24.2 %; MEAN CORPUSCULAR HEMOGLOBIN 32.1 pg (27.0-31.0); MEAN CORPUSCULAR HGB CONC 33.2 g/dL (32.0-36.0); MEAN CORPUSCULAR VOLUME 96.5 fL (81.0-99.0); MONOCYTES # (AUTO) 0.5 10^3/uL (0.0-1.0); MONOCYTES % (AUTO) 8.3 %; NEUTROPHILS % (AUTO) 65.7 %; PLT - PLATELET COUNT 211 10^3/uL (130-450); RED BLOOD COUNT 3.98 10^6/uL (4.20-5.40); RED CELL DISTRIBUTION WIDTH 17.7 % (12.0-15.0); WHITE BLOOD COUNT 6.1 x10^3/uL (4.8-10.8)
[2018-06-19 18:34] LABS: ALBUMIN 4.3 g/dL (3.2-5.5); ALBUMIN/GLOBULIN RATIO 1.4 (1.0-2.2); BILIRUBIN,TOTAL 0.6 mg/dL (0.2-1.0); CALCIUM 9.4 mg/dL (8.5-10.3); CREATININE 0.8 mg/dL (0.4-1.0); TOTAL PROTEIN 7.3 g/dL (6.7-8.2)
== END 2018-06-19 15:16 | disposition home or self-care (01) ==
LOC: LAB.F 15:15
PROVIDERS: ATTEND Internal Medicine
DX: D62 Acute posthemorrhagic anemia (principal); R53.83 Other fatigue
CPT/HCPCS: 36415; 80053; 85025

== ENCOUNTER 2018-09-25 08:00 | Outpatient (CLI) | payer MEDICARE, OTHER | END 2018-09-25 23:59 | disposition home or self-care (01) | LOC: LAB 08:00 | PROVIDERS: ATTEND Registered Nurse | DX: J02.9 Acute pharyngitis, unspecified (principal); R25.1 Tremor, unspecified; R53.83 Other fatigue | CPT/HCPCS: 36415; 82024; 82533; 84443; 85025; 87070 ==

== ENCOUNTER 2018-09-25 14:15 | Outpatient (CLI) | payer MEDICARE, OTHER | END 2018-09-25 14:16 | disposition home or self-care (01) | LOC: LAB.F 14:15 | PROVIDERS: ATTEND Physical Medicine & Rehabilitation | DX: R25.1 Tremor, unspecified (principal); R53.83 Other fatigue | CPT/HCPCS: 36415; 82024; 82533; 84443; 85025 ==

== ENCOUNTER 2018-09-28 09:22 | Outpatient (CLI) | payer MEDICARE, OTHER ==
[2018-09-28 17:34] LABS: BASOPHILS % (AUTO) 0.6 %; EOSINOPHILS # (AUTO) 0.1 10^3/uL (0.0-0.7); HGB - HEMOGLOBIN 12.5 g/dL (12.0-16.0); LYMPHOCYTES # (AUTO) 1.6 10^3/uL (1.5-3.5); LYMPHOCYTES % (AUTO) 28.6 %; MEAN CORPUSCULAR HEMOGLOBIN 31.9 pg (27.0-31.0); MEAN CORPUSCULAR HGB CONC 32.7 g/dL (32.0-36.0); MEAN CORPUSCULAR VOLUME 97.6 fL (81.0-99.0); MONOCYTES # (AUTO) 0.5 10^3/uL (0.0-1.0); NEUTROPHILS # (AUTO) 3.4 10^3/uL (1.5-6.6); NEUTROPHILS % (AUTO) 60.8 %; PLT - PLATELET COUNT 189 10^3/uL (130-450); RED BLOOD COUNT 3.92 10^6/uL (4.20-5.40); WHITE BLOOD COUNT 5.5 x10^3/uL (4.8-10.8)
== END 2018-09-28 09:23 | disposition home or self-care (01) ==
LOC: LAB.F 09:22
PROVIDERS: ATTEND Physical Medicine & Rehabilitation
DX: R25.1 Tremor, unspecified (principal); R53.83 Other fatigue
CPT/HCPCS: 36415; 82024; 82533; 84443; 85025

== ENCOUNTER 2019-10-05 08:45 | Outpatient (CLI) | payer MEDICARE, OTHER ==
[2019-10-05 09:38] LABS: BASOPHILS # (AUTO) 0.1 10^3/uL (0.0-0.1); BASOPHILS % (AUTO) 0.7 %; EOSINOPHILS # (AUTO) 0.1 10^3/uL (0.0-0.7); EOSINOPHILS % (AUTO) 1.1 %; HGB - HEMOGLOBIN 14.7 g/dL (12.0-16.0); LYMPHOCYTES # (AUTO) 2.7 10^3/uL (1.5-3.5); LYMPHOCYTES % (AUTO) 36.2 %; MEAN CORPUSCULAR HEMOGLOBIN 33.6 pg (27.0-31.0); MEAN CORPUSCULAR HGB CONC 33.4 g/dL (32.0-36.0); MEAN CORPUSCULAR VOLUME 100.7 fL (81.0-99.0); MEAN PLATELET VOLUME 10.7 fL (7.9-10.8); MONOCYTES # (AUTO) 0.8 10^3/uL (0.0-1.0); MONOCYTES % (AUTO) 10.2 %; NEUTROPHILS # (AUTO) 3.9 10^3/uL (1.5-6.6); NEUTROPHILS % (AUTO) 51.5 %; PLT - PLATELET COUNT 226 10^3/uL (130-450); RED BLOOD COUNT 4.37 10^6/uL (4.20-5.40); RED CELL DISTRIBUTION WIDTH 13.3 % (12.0-15.0); WHITE BLOOD COUNT 7.6 x10^3/uL (4.8-10.8)
[2019-10-05 09:48] LABS: ALBUMIN 4.6 g/dL (3.2-5.5); ALBUMIN/GLOBULIN RATIO 1.5 (1.0-2.2); BILIRUBIN,TOTAL 0.9 mg/dL (0.2-1.0); CALCIUM 9.1 mg/dL (8.5-10.3); CREATININE 0.8 mg/dL (0.4-1.0); TOTAL PROTEIN 7.6 g/dL (6.7-8.2); URIC ACID 5.7 mg/dL (2.6-7.2)
[2019-10-05 10:46] LABS: FREE T4 (FREE THYROXINE) 0.77 ng/dL (0.58-1.64)
== END 2019-10-05 08:46 | disposition home or self-care (01) ==
LOC: LAB 08:45
PROVIDERS: ATTEND Family Medicine
DX: K21.9 Gastro-esophageal reflux disease without esophagitis (principal); M10.9 Gout, unspecified; I50.9 Heart failure, unspecified; Z95.0 Presence of cardiac pacemaker; I48.91 Unspecified atrial fibrillation
CPT/HCPCS: 36415; 80053; 84439; 84443; 84550; 85025

== ENCOUNTER 2019-10-22 10:40 | Outpatient (CLI) | payer MEDICARE, OTHER ==
[2019-10-22 11:24] LABS: CALCIUM 8.8 mg/dL (8.5-10.3); CREATININE 0.8 mg/dL (0.4-1.0)
[2019-10-22 11:41] LABS: HB2 TOTAL 14.1 g/dL; HEMOGLOBIN A1C 0.54 g/dL; HEMOGLOBIN A1C % 5.7 % (4.6-6.2)
[2019-10-24 22:50] LABS: ALBUMIN 4.3 g/dL (3.8-4.8); ALPHA 1 GLOBULIN 0.3 g/dL (0.2-0.3); ALPHA 2 GLOBULIN 0.7 g/dL (0.5-0.9); BETA 1 GLOBULIN 0.4 g/dL (0.4-0.6); BETA 2 GLOBULIN 0.3 g/dL (0.2-0.5); GAMMA GLOBULIN 0.8 g/dL (0.8-1.7)
== END 2019-10-22 10:41 | disposition home or self-care (01) ==
LOC: LAB 10:40
PROVIDERS: ATTEND Hospitalist
DX: R26.81 Unsteadiness on feet (principal); R47.81 Slurred speech; I48.0 Paroxysmal atrial fibrillation
CPT/HCPCS: 36415; 80048; 81599; 82607; 83036; 83921; 84155; 84165; 85610; 86334

== ENCOUNTER 2019-11-08 17:02 | Outpatient (CLI) | payer MEDICARE, OTHER ==
[2019-11-08 19:55] LABS: BASOPHILS % (AUTO) 0.6 %; EOSINOPHILS # (AUTO) 0.1 10^3/uL (0.0-0.7); EOSINOPHILS % (AUTO) 1.3 %; HGB - HEMOGLOBIN 14.1 g/dL (12.0-16.0); LYMPHOCYTES # (AUTO) 1.9 10^3/uL (1.5-3.5); LYMPHOCYTES % (AUTO) 28.2 %; MEAN CORPUSCULAR HEMOGLOBIN 32.7 pg (27.0-31.0); MEAN CORPUSCULAR HGB CONC 32.2 g/dL (32.0-36.0); MEAN CORPUSCULAR VOLUME 101.6 fL (81.0-99.0); MONOCYTES # (AUTO) 0.5 10^3/uL (0.0-1.0); MONOCYTES % (AUTO) 7.6 %; NEUTROPHILS # (AUTO) 4.2 10^3/uL (1.5-6.6); PLT - PLATELET COUNT 224 10^3/uL (130-450); RED BLOOD COUNT 4.31 10^6/uL (4.20-5.40); WHITE BLOOD COUNT 6.8 x10^3/uL (4.8-10.8)
[2019-11-08 20:04] LABS: ALBUMIN 4.9 g/dL (3.2-5.5); ALBUMIN/GLOBULIN RATIO 1.6 (1.0-2.2); BILIRUBIN,TOTAL 0.6 mg/dL (0.2-1.0); CREATININE 0.7 mg/dL (0.4-1.0); TOTAL PROTEIN 7.9 g/dL (6.7-8.2); URIC ACID 4.3 mg/dL (2.6-7.2)
[2019-11-08 20:26] LABS: FREE T3 2.89 pg/mL (2.5-3.9)
[2019-11-08 20:27] LABS: FREE T4 (FREE THYROXINE) 0.86 ng/dL (0.58-1.64)
== END 2019-11-08 17:03 | disposition home or self-care (01) ==
LOC: LAB.S 17:02
PROVIDERS: ATTEND Family Medicine
DX: E03.9 Hypothyroidism, unspecified (principal); R49.0 Dysphonia; K21.9 Gastro-esophageal reflux disease without esophagitis; M10.9 Gout, unspecified; I50.9 Heart failure, unspecified; Z95.0 Presence of cardiac pacemaker; I48.0 Paroxysmal atrial fibrillation
CPT/HCPCS: 36415; 80053; 84439; 84443; 84481; 84550; 85025

== ENCOUNTER 2020-01-01 19:58 | Outpatient (CLI) | payer MEDICARE, OTHER ==
--- NOTE | 2020-01-01 20:25 | XRAY Report ---
PROCEDURE: Chest 2 View X-Ray INDICATIONS: Pain in upper chest TECHNIQUE: 2 views of the chest. COMPARISON: 04/08/2016. FINDINGS: Surgical changes and devices: Left chest wall dual-lead pacemaker redemonstrated with the leads proje cting over the right atrium and right ventricle. Lungs and pleura: There is hyperinflation of the lungs with slight flattening of the hemidiaphragms suggestive of COPD. No acute consolidation. No pleural effusions or pneumothorax. Mediastinum: Mediastinal contours are unchanged. Heart size is normal. Bones and chest wall: No suspicious bony abnormalities. Soft tissues appear unremarkable. IMPRESSION: 1. Findings suggestive of COPD without acute consolidation. Reviewed by: Tian Magallanes MD on 01/01/2020 8:24 PM PDT Approved by: Tian Magallanes MD on 01/01/2020 8:24 PM PDT Station ID: [id number]
== END 2020-01-01 19:59 | disposition home or self-care (01) ==
LOC: DI 19:58
PROVIDERS: ATTEND Physician Assistant Medical
DX: R07.9 Chest pain, unspecified (principal); J44.9 Chronic obstructive pulmonary disease, unspecified
CPT/HCPCS: 71046

== ENCOUNTER 2020-04-26 19:01 | Emergency (ER) | payer MEDICARE, OTHER ==
[2020-04-26] MEDS ORDERED: MORPHINE 2 MG/ML CARPUJECT IVP STA (20:03)
[2020-04-26 20:20] LABS: BILIRUBIN,URINE NEGATIVE (NEGATIVE); GLUCOSE, URINE (UA) NEGATIVE (NEGATIVE); KETONES,URINE (UA) NEGATIVE (NEGATIVE); LEUKOCYTE ESTERASE, URINE SMALL (NEGATIVE); NITRITE,URINE NEGATIVE (NEGATIVE); OCCULT BLOOD,URINE NEGATIVE (NEGATIVE); PROTEIN,URINE NEGATIVE (NEGATIVE); UROBILINOGEN,URINE 0.2 (NORMAL) E.U./dL (NORMAL)
[2020-04-26] MEDS ORDERED: IOVERSOL 320 100 ML VIAL IVP ONE ×2 (20:27→21:16)
[2020-04-26 20:29] LABS: BACTERIA,URINE Many /HPF (None Seen); CLARITY,URINE HAZY (CLEAR); RBC,URINE 0-5 /HPF (0-5); SQUAMOUS EPITHELIAL CELL,UR MANY Squamous (<= Few)
[2020-04-26 20:30] LABS: AMORPHOUS SEDIMENT,UR Few /LPF
[2020-04-26 20:39] LABS: BASOPHILS % (AUTO) 0.4 %; EOSINOPHILS # (AUTO) 0.1 10^3/uL (0.0-0.7); EOSINOPHILS % (AUTO) 1.3 %; HGB - HEMOGLOBIN 13.2 g/dL (12.0-16.0); LYMPHOCYTES # (AUTO) 1.6 10^3/uL (1.5-3.5); LYMPHOCYTES % (AUTO) 15.8 %; MEAN CORPUSCULAR HEMOGLOBIN 33.4 pg (27.0-31.0); MEAN CORPUSCULAR HGB CONC 33.2 g/dL (32.0-36.0); MEAN CORPUSCULAR VOLUME 100.5 fL (81.0-99.0); MEAN PLATELET VOLUME 10.4 fL (7.9-10.8); MONOCYTES # (AUTO) 0.8 10^3/uL (0.0-1.0); MONOCYTES % (AUTO) 8.3 %; NEUTROPHILS # (AUTO) 7.4 10^3/uL (1.5-6.6); NEUTROPHILS % (AUTO) 73.8 %; PLT - PLATELET COUNT 174 10^3/uL (130-450); RED BLOOD COUNT 3.95 10^6/uL (4.20-5.40); RED CELL DISTRIBUTION WIDTH 13.6 % (12.0-15.0)
[2020-04-26 20:49] LABS: ALBUMIN 4.1 g/dL (3.2-5.5); ALBUMIN/GLOBULIN RATIO 1.2 (1.0-2.2); BILIRUBIN,TOTAL 0.5 mg/dL (0.2-1.0); CALCIUM 9.2 mg/dL (8.5-10.3); CREATININE 0.8 mg/dL (0.4-1.0); TOTAL PROTEIN 7.4 g/dL (6.7-8.2)
--- NOTE | 2020-04-26 21:41 | CT Report ---
PROCEDURE: ANGIO ABDOMEN/PELVIS W INDICATIONS: abd/back pain CONTRAST: IV CONTRAST: Optiray 320 ml: 100 PO CONTRAST: *NO PO CONTRAST TECHNIQUE: After the administration of intravenous contrast, 2 and 5 mm sections acquired from the diaphragm to the iliac crests. 3-dimensional maximum intensity projection (MIP) coronal and sagittal reformats, a nd/or 3-dimensional volume rendering reformatting was then performed. For radiation dose reduction, the following was used: automated exposure control, adjustment of mA and/or kV according to patient size. COMPARISON: CXR 01/01/2020. FINDINGS: Image quality: Excellent. Extravascular tissues: Right lower lobe pulmonary nodule measuring 7 mm, (10/04). Heart size is normal . Tricuspid valve replacement visualized. Pacemaker lead. Liver and spleen are normal in size and enh ancement. Gallbladder is surgically absent. Biliary system is non dilated. Pancreas enhances jing lly. No adrenal nodules. Kidneys are normal in size and enhancement, without hydronephrosis. Non-o pacified bowel loops demonstrate normal wall thickness and caliber. Prominent stool in the left colon . Normal appendix. No free fluid or air. No retroperitoneal or mesenteric adenopathy. No ventral he rnias. Unremarkable uterus. No suspicious bony abnormalities. No vertebral body compression fractur es. Abdominal aorta: No aneurysm. No dissection. Moderate aortoiliac calcified atherosclerotic plaque. Mesenteric arteries: The celiac, SMA, BARBARA are patent. Conventional and patent hepatic arterial anato my. Renal arteries: Patent. IMPRESSION: 1. No acute dissection or aneurysm. 2. Prominent stool in the left colon. 3. Right lower lobe pulmonary nodule measuring 7 mm. -Recommend follow-up chest CT in 6-12 months depending on risk factors. Reviewed by: Humble Collins MD on 04/26/2020 9:39 PM [facility] Approved by: Humble Collins MD on 04/26/2020 9:39 PM PST Station ID: [id number]
--- NOTE | 2020-04-26 21:46 | ED Physician Documentation ---
History of Present Illness - Stated complaint Stated Complaint: back pain - Chief complaint Chief Complaint: Back Pain - History obtained from History obtained from: Patient - History of Present Illness Timing: How many days ago (3) Pain level max: 9 Pain level now: 9 - Additonal information Additional information: Patient is a 74-year-old female who presents to the emergency department with back and abdominal pain for the past 3 days. She states it is mainly on the left side, feels like it goes through her abdomen. nothing makes it better or worse. She is concerned about potential aortic dissection, she read about it on the internet. No vomiting. No fevers. No numbness or tingling. No focal neurological deficits. Has had some constipation. 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 HEENT: None Psych: None Musculoskeletal: None Derm: None - Past Surgical History Past Surgical History: Yes Cardiovascular: Valve replacement, Pacemaker - Present Medications Home Medications: Ambulatory Orders Medication Instructions Recorded Confirmed Budesonide/Formoterol Fumarate 2 puffs PO BID 12/11/17 12/11/17 [Symbicort 160-4.5 Mcg Inhaler] Colchicine [Colcrys] 1 tab PO DAILY 12/11/17 12/11/17 Folic Acid 1 tab PO DAILY 12/11/17 12/11/17 Furosemide 80 mg PO BID 12/11/17 12/11/17 Metoprolol Succinate 1 tab PO DAILY 12/11/17 12/11/17 Montelukast Sodium 1 tab PO DAILY 12/11/17 12/11/17 Nitroglycerin [Nitroglycerin Patch 1 patch TOP PRN PRN 12/11/17 12/11/17 (0.4MG/HR)] Nitroglycerin [Nitrostat] 1 tab SQ PRN PRN 12/11/17 12/11/17 Omeprazole 1 tab PO BID 12/11/17 12/11/17 Sucralfate 1 tab PO Q6H 12/11/17 12/11/17 Venlafaxine [Effexor] 75 mg PO BID 12/11/17 12/11/17 Warfarin [Coumadin] 1 tab PO DAILY 12/11/17 12/11/17 allopurinoL [Allopurinol] 1 tab PO DAILY 12/11/17 12/11/17 buPROPion HCL [Bupropion HCl Sr] 1 tab PO BID 12/11/17 12/11/17 traZODone [Desyrel] 1 tab PO DAILY 12/11/17 12/11/17 Albuterol Sulf [Ventolin Hfa 2 puffs DAILY 04/26/20 04/26/20 Inhaler] Atorvastatin [Lipitor] 20 DAILY 04/26/20 Baclofen [Lioresal] 10 DAILY 04/26/20 Cyclosporine [Restasis] 1 drops BID 04/26/20 04/26/20 Ezetimibe [Zetia] 10 DAILY 04/26/20 Levothyroxine [Synthroid] 25 mcg DAILY 04/26/20 04/26/20 Lipase/Protease/Amylase [Creon Dr 1 04/26/20 12,000 Units Capsule] Loratadine [Claritin] 10 mg DAILY 04/26/20 04/26/20 Magnesium Citrate [Citroma] 296 ml PO DAILY PRN #1 solution 04/26/20 Spironolactone [Aldactone] 25 mg BID 04/26/20 04/26/20 polyethylene glycoL 3350 [Miralax] 17 gm PO DAILY PRN #1 bottle 04/26/20 - Allergies Allergies/Adverse Reactions: Allergies Allergy/AdvReac Type Severity Reaction Status Date / Time meperidine HCl * Allergy Unknown Verified 04/26/20 19:18 [From Demerol] simvastatin AdvReac Unknown Verified 04/26/20 19:18 - Social History Does the pt smoke?: No Smoking Status: Never smoker Does the pt drink ETOH?: No Does the pt have substance abuse?: No - Immunizations Immunizations are current?: Yes - POLST Patient has POLST: No PD ED PE NORMAL - Vitals Vital signs reviewed: Yes - General General: Alert and oriented X 3, No acute distress, Well developed/nourished - HEENT HEENT: Moist mucous membranes - Neck Neck: Supple, no meningeal sign - Cardiac Cardiac: RRR - Respiratory Respiratory: No respiratory distress, Clear bilaterally - Abdomen Abdomen: Soft, Non tender, Non distended - Back Back: No CVA TTP, No spinal TTP - Derm Derm: Warm and dry, No rash - Extremities Extremities: No edema, No calf tenderness / cord - Neuro Neuro: Alert and oriented 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, 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, No motor deficit, No sensory deficit - Psych Psych: Normal mood, Normal affect Results - Vitals Vitals: Vital Signs - 24 hr 04/26/20 04/26/20 04/26/20 19:10 19:16 21:16 Temperature 37.1 C 36.6 C Heart Rate 68 64 75 Respiratory 16 14 15 Rate Blood Pressure 100/87 H 107/62 123/87 H O2 Saturation 99 99 99 04/26/20 22:07 Temperature Heart Rate 80 Respiratory 18 Rate Blood Pressure 127/82 H O2 Saturation 96 Oxygen O2 Source Room air - Labs Labs: Laboratory Tests 04/26/20 04/26/20 04/26/20 19:23 20:30 20:30 WBC 10.0 RBC 3.95 L Hgb 13.2 Hct 39.7 MCV 100.5 H MCH 33.4 H MCHC 33.2 RDW 13.6 Plt Count 174 MPV 10.4 Neut # (Auto) 7.4 H Lymph # (Auto) 1.6 [place] # (Auto) 0.8 Eos # (Auto) 0.1 Baso # (Auto) 0.0 Absolute Nucleated RBC 0.00 Nucleated RBC % 0.0 Sodium 138 Potassium 4.3 Chloride 98 L Carbon Dioxide 28 Anion Gap 12.0 BUN 12 Creatinine 0.8 Estimated GFR (MDRD) 70 L Glucose 113 H Calcium 9.2 Total Bilirubin 0.5 AST 21 ALT 18 Alkaline Phosphatase 48 Total Protein 7.4 Albumin 4.1 Globulin 3.3 Albumin/Globulin Ratio 1.2 Lipase 37 Urine Color YELLOW Urine Clarity HAZY Urine pH 7.0 Ur Specific [place] 1.015 Urine Protein NEGATIVE Urine Glucose (UA) NEGATIVE Urine Ketones NEGATIVE Urine Occult Blood NEGATIVE Urine Nitrite NEGATIVE Urine Bilirubin NEGATIVE Urine Urobilinogen 0.2 (NORMAL) Ur Leukocyte Esterase SMALL H Urine RBC 0-5 Urine WBC 0-3 Ur Squamous Epith Cells MANY Squamous H Amorphous Sediment Few Urine Bacteria Many H Ur Microscopic Review INDICATED Urine Culture Comments NOT INDICATED - Rads (name of study) CT abd/pelvis Radiology: Prelim report reviewed, EMP read contemporaneously, See rad report (1. No acute dissection or aneurysm. 2. Prominent stool in the left colon. 3. Right lower lobe pulmonary nodule measuring 7 mm. -Recommend follow-up chest CT in 6-12 months depending on risk factors. ) PD MEDICAL DECISION MAKING - ED course Complexity details: reviewed results, re-evaluated patient, considered differential (No cauda equina, no spinal epidural abscess, no fracture, no aortic dissection or evidence of aneursym rupture), d/w patient ED course: 74-year-old female presents to the emergency department with back pain of unclear etiology. No acute findings on laboratory testing, physical exam or CT scan. She does have constipation we will treat her for this. She will follow-up with her doctor regarding the pulmonary nodule. She has an appointment in 2 days. No neurological deficits. No aortic dissection. Patient counseled regarding signs and symptoms for which I believe and urgent re-evaluation would be necessary. Patient with good understanding of and agreement to plan and is comfortable going home at this time This document was made in part using voice recognition software. While efforts are made to proofread this document, sound alike and grammatical errors may occur. Departure - Departure Disposition: Home, Self Care Clinical Impression: Pulmonary nodule Back pain Qualifiers: Back pain location: low back pain Chronicity: acute Back pain laterality: bilateral Sciatica presence: without sciatica Qualified Code(s): M54.5 - Low back pain Constipation Qualifiers: Constipation type: unspecified constipation type Qualified Code(s): K59.00 - Constipation, unspecified Condition: Good Instructions: ED Constipation Follow-Up: Lawrence Ellison MD [Primary Care Provider] - Within 1 week Prescriptions: Magnesium Citrate [Citroma] 296 ml PO DAILY PRN #1 solution PRN Reason: Constipation polyethylene glycoL 3350 [Miralax] 17 gm PO DAILY PRN #1 bottle PRN Reason: Constipation Comments: The only acute finding on your imaging or laboratory testing today is constipation. We will have you take the magnesium citrate and MiraLAX together. Drink plenty of water tomorrow as well. We will see if this helps your symptoms. Return if you worsen. Discharge Date/Time: 04/26/20 22:30
[2020-04-26 22:08] VITALS: BP 127/82
== END 2020-04-26 22:30 | disposition home or self-care (01) ==
LOC: ED 19:01
DX: M54.5 Low back pain (principal); K59.00 Constipation, unspecified; R91.1 Solitary pulmonary nodule; Z95.0 Presence of cardiac pacemaker; Z79.01 Long term (current) use of anticoagulants; Z95.2 Presence of prosthetic heart valve
CPT/HCPCS: 36415; 74174; 80053; 81001; 83690; 85025; 96374; 99284; Q9967; 81003; 87086

== ENCOUNTER 2020-07-09 16:03 | Outpatient (CLI) | payer MEDICARE, OTHER ==
[2020-07-09 19:55] LABS: BASOPHILS % (AUTO) 0.3 %; EOSINOPHILS # (AUTO) 0.1 10^3/uL (0.0-0.7); EOSINOPHILS % (AUTO) 0.7 %; HGB - HEMOGLOBIN 14.1 g/dL (12.0-16.0); LYMPHOCYTES # (AUTO) 1.8 10^3/uL (1.5-3.5); LYMPHOCYTES % (AUTO) 25.5 %; MEAN CORPUSCULAR HEMOGLOBIN 33.8 pg (27.0-31.0); MEAN CORPUSCULAR VOLUME 102.4 fL (81.0-99.0); MONOCYTES # (AUTO) 0.5 10^3/uL (0.0-1.0); MONOCYTES % (AUTO) 7.8 %; NEUTROPHILS # (AUTO) 4.5 10^3/uL (1.5-6.6); NEUTROPHILS % (AUTO) 65.6 %; PLT - PLATELET COUNT 217 10^3/uL (130-450); RED BLOOD COUNT 4.17 10^6/uL (4.20-5.40); RED CELL DISTRIBUTION WIDTH 14.4 % (12.0-15.0); WHITE BLOOD COUNT 6.9 x10^3/uL (4.8-10.8)
[2020-07-09 20:11] LABS: ALBUMIN 4.6 g/dL (3.2-5.5); ALBUMIN/GLOBULIN RATIO 1.6 (1.0-2.2); BILIRUBIN,TOTAL 0.7 mg/dL (0.2-1.0); CALCIUM 9.2 mg/dL (8.5-10.3); CREATININE 0.7 mg/dL (0.4-1.0); TOTAL PROTEIN 7.4 g/dL (6.7-8.2)
== END 2020-07-09 16:04 | disposition home or self-care (01) ==
LOC: LAB.S 16:03
PROVIDERS: ATTEND Internal Medicine
DX: E03.9 Hypothyroidism, unspecified (principal); Z79.899 Other long term (current) drug therapy; I50.32 Chronic diastolic (congestive) heart failure
CPT/HCPCS: 36415; 80053; 84443; 85025

== ENCOUNTER 2020-07-13 11:27 | Outpatient (CLI) | payer MEDICARE, OTHER ==
--- NOTE | 2020-07-16 06:24 | Mammography Report ---
BILATERAL DIGITAL DIAGNOSTIC MAMMOGRAM 3D/2D: 07/13/2020 CLINICAL: Palpable right axilla lump. Palpable left axilla lump. Comparison is made to exams dated: 12/01/2015 mammogram - [facility] and 07/05/2011 ma mmogram - [facility]. The tissue of both breasts is predominantly fatty. There is an oval fat containing lymph node with a circumscribed margin in the right breast posterior depth superior region seen on the mediolateral oblique view only. This correlates as palpated. No other significant masses, calcifications, or other findings are seen in either breast. IMPRESSION: INCOMPLETE: NEEDS ADDITIONAL IMAGING EVALUATION The oval fat containing lymph node in the right breast is indeterminate. An ultrasound is recommende d. There is no abnormality seen in the left axilla to correspond with the palpable abnormality in the le ft axilla, however, ultrasound is recommended. This exam was interpreted at Station ID: [id number]. NOTE: For mammograms, a report in lay terms will be sent to the patient. Approximately 15% of breast malignancies will not be visualized mammographically. In the management of a palpable breast mass, a negative mammogram must not discourage biopsy of a clinically suspicious lesion. Electronically Signed By: Tian Magallanes M.D. ddp/penrad:07/13/2020 12:09:06 ACR BI-RADS Category 0: Incomplete 3340F PARENCHYMAL PATTERN: (F) - The breast(s) demonstrate(s) diffuse fatty replacement. BI-RADS CATEGORY: (0) - 0 Ultrasound [id number] Immediate follow-up LATERALITY: (B)
--- NOTE | 2020-07-16 06:24 | Ultrasound Report ---
ULTRASOUND OF RIGHT AXILLA: 07/13/2020 CLINICAL: Palpable right axilla lump. Comparison is made to exams dated: 07/13/2020 mammogram, 12/01/2015 mammogram - [facility], and 07/05/2011 mammogram - [facility]. Color flow and real-time ultrasound of the right axilla were performed on the areas of interest. There are multiple oval lymph nodes in the right axilla. These oval lymph nodes are of mixed echogeni city with fatty juan carlos. The largest node measures up to 2.8 x 1.2 x 2.4 cm. No cortical thickening. The se correlate as palpated. Color flow imaging demonstrates that there is no increase in vascularity. IMPRESSION: PROBABLY BENIGN The multiple oval lymph nodes likely represent reactive enlarged lymph nodes and are probably benign. Recommend followup clinically. A follow-up ultrasound in 4-12 weeks is recommended. This exam was interpreted at Station ID: [id number]. Electronically Signed By: Tian Magallanes M.D. ddp/:07/13/2020 13:09:26 Ultrasound BI-RADS: 3 Probably benign BI-RADS CATEGORY: (3) - 3 Ultrasound [id number] 3 month follow-up LATERALITY: (B)
--- NOTE | 2020-07-16 06:25 | Ultrasound Report ---
ULTRASOUND OF LEFT AXILLA: 07/13/2020 CLINICAL: Bilateral axillary lumps. Comparison is made to exams dated: 07/13/2020 ultrasound, 07/13/2020 mammogram, 12/01/2015 mammogram - [facility], and 07/05/2011 mammogram - [facility]. Color flow and real-time ultrasound of the left axilla were performed on the areas of interest. There are multiple lymph nodes in the left axilla. These lymph nodes are of mixed echogenicity with fatty juan carlos. The largest measures up to 3.0 x 2.0 x 1.2 cm. No abnormal cortical thickening. These co rrelate as palpated. Color flow imaging demonstrates that there is no increase in vascularity. IMPRESSION: PROBABLY BENIGN The multiple lymph nodes likely represent reactive enlarged lymph node and are probably benign. Clin ical correlation is recommended. A follow-up ultrasound in 4-12 weeks is recommended to demonstrate r esolution of stability. A follow-up ultrasound in 4-12 weeks is recommended. This exam was interpreted at Station ID: [id number]. Electronically Signed By: Tian Magallanes M.D. ddp/:07/13/2020 13:17:52 Ultrasound BI-RADS: 3 Probably benign BI-RADS CATEGORY: (3) - 3 Ultrasound [id number] 3 month follow-up LATERALITY: (B)
== END 2020-07-13 11:28 | disposition home or self-care (01) ==
LOC: DI 11:27
PROVIDERS: ATTEND Internal Medicine
DX: N64.4 Mastodynia (principal); R59.1 Generalized enlarged lymph nodes
CPT/HCPCS: 76642; 77066; G0279

== ENCOUNTER 2023-10-04 12:35 | Outpatient (CLI) | payer MEDICARE, OTHER ==
[2023-10-04 14:38] LABS: BASOPHILS # (AUTO) 0.1 10^3/uL (0.0-0.1); BASOPHILS % (AUTO) 0.9 %; EOSINOPHILS # (AUTO) 0.2 10^3/uL (0.0-0.7); EOSINOPHILS % (AUTO) 3.5 %; HCT - HEMATOCRIT 46.4 % (37.0-47.0); HGB - HEMOGLOBIN 15.1 g/dL (12.0-16.0); LYMPHOCYTES # (AUTO) 2.2 10^3/uL (1.5-3.5); LYMPHOCYTES % (AUTO) 31.7 %; MEAN CORPUSCULAR HEMOGLOBIN 33.3 pg (27.0-31.0); MEAN CORPUSCULAR HGB CONC 32.5 g/dL (32.0-36.0); MEAN CORPUSCULAR VOLUME 102.2 fL (81.0-99.0); MEAN PLATELET VOLUME 11.3 fL (7.9-10.8); MONOCYTES # (AUTO) 0.7 10^3/uL (0.0-1.0); MONOCYTES % (AUTO) 10.1 %; NEUTROPHILS # (AUTO) 3.7 10^3/uL (1.5-6.6); NEUTROPHILS % (AUTO) 53.4 %; PLT - PLATELET COUNT 188 10^3/uL (130-450); RED BLOOD COUNT 4.54 10^6/uL (4.20-5.40); RED CELL DISTRIBUTION WIDTH 14.2 % (12.0-15.0); WHITE BLOOD COUNT 6.9 x10^3/uL (4.8-10.8)
[2023-10-04 14:43] LABS: INR 2.7 (0.8-1.2); PT - PROTHROMBIN TIME 27.8 secs (9.9-12.6)
[2023-10-04 14:58] LABS: ALBUMIN 4.5 g/dL (3.2-5.5); ALBUMIN/GLOBULIN RATIO 1.6 (1.0-2.2); BILIRUBIN,TOTAL 0.4 mg/dL (0.2-1.0); CALCIUM 9.9 mg/dL (8.5-10.3); CREATININE 0.9 mg/dL (0.6-1.3); POTASSIUM 4.8 mmol/L (3.5-4.5); TOTAL PROTEIN 7.3 g/dL (6.4-8.9)
== END 2023-10-04 12:36 | disposition home or self-care (01) ==
LOC: LAB.S 12:35
PROVIDERS: ATTEND Physician Assistant Medical
DX: I50.9 Heart failure, unspecified (principal); I48.0 Paroxysmal atrial fibrillation
CPT/HCPCS: 36415; 80053; 85025; 85610

== ENCOUNTER 2023-10-05 09:58 | Outpatient (CLI) | payer MEDICARE, OTHER ==
--- NOTE | 2023-10-05 12:18 | XRAY Report ---
PROCEDURE: Tib/Fib LT INDICATIONS: LEG PAIN,LEFT TECHNIQUE: 2 views of the tibia and fibula were acquired. COMPARISON: None. FINDINGS: Bones: No fractures or dislocations. No suspicious bony lesions. Soft tissues: No suspicious soft tissue calcifications or masses. IMPRESSION: No visualized acute fracture or dislocation. However, occult injury cannot be excluded. Recommend brent rt interval imaging follow-up in 7-10 days as clinically indicated for additional evaluation. Reviewed by: Sussy Paniagua MD on 10/05/2023 12:17 PM PDT Approved by: Sussy Paniagua MD on 10/05/2023 12:17 PM PDT Station ID: [id number]
== END 2023-10-05 09:59 | disposition home or self-care (01) ==
LOC: DI.S 09:58
PROVIDERS: ATTEND Physician Assistant Medical
DX: M79.605 Pain in left leg (principal)

== ENCOUNTER 2023-10-09 11:32 | Outpatient (CLI) | payer MEDICARE, OTHER ==
--- NOTE | 2023-10-09 17:44 | XRAY Report ---
PROCEDURE: Knee 3V LT INDICATIONS: SCIATICA AND OSTEOARTHRITIS TECHNIQUE: 3 views of the knee(s) were acquired. COMPARISON: None. FINDINGS: Bones: No fractures or dislocations. No suspicious bony lesions. There is a defect in the lateral f acet of patella. Mild tricompartmental knee joint degeneration. There is chondrocalcinosis. There is a 1.1 cm intra-articular body in the suprapatellar knee joint. Soft tissues: No knee joint effusion. No suspicious soft tissue calcifications or masses. Vascular c alcifications consistent with atherosclerosis. IMPRESSION: 1. Mild degenerative joint disease. 2. A 1.1 cm intra-articular body in the suprapatellar knee joint. A defect is noted in the lateral fa cet of patella suggesting osteochondral injury, which may be the donor site for the joint body. If cl inically indicated, MRI may be helpful. 3. Chondrocalcinosis. Common etiologies are hyperparathyroidism and CPPD. Reviewed by: Pily Solis MD on 10/09/2023 5:43 PM PDT Approved by: Pily Solis MD on 10/09/2023 5:43 PM PDT Station ID: [id number]
--- NOTE | 2023-10-10 11:26 | XRAY Report ---
PROCEDURE: Lumbar Spine 2-3V INDICATIONS: SCIATICA AND OSTEOARTHRITIS TECHNIQUE: 3 views of the lumbar spine were acquired. COMPARISON: None. FINDINGS: Bones: 5 [id number] vertebrae are present. There is normal bony alignment. No vertebral body compression fractures. No suspicious bony lesions. Multilevel degenerative disc disease, moderate a t L1-L2, L2-L3 and L4-L5, mild at other levels. Moderate facet arthropathy at L3-L4, L5 L5 and L5-S1. Soft tissues: Overlying bowel gas pattern is normal. No suspicious soft tissue calcifications. Cho lecystectomy clips are noted IMPRESSION: Moderate degenerative disc and facet disease in lumbar spine. If clinical symptoms persist, MRI would be helpful Reviewed by: Pily Solis MD on 10/10/2023 11:25 AM PDT Approved by: Pily Solis MD on 10/10/2023 11:25 AM PDT Station ID: [id number]
== END 2023-10-09 11:33 | disposition home or self-care (01) ==
LOC: DI.S 11:32
PROVIDERS: ATTEND Emergency Medicine
DX: M47.816 Spondylosis without myelopathy or radiculopathy, lumbar region (principal); M51.36 Other intervertebral disc degeneration, lumbar region; M47.817 Spondylosis without myelopathy or radiculopathy, lumbosacral region; M17.12 Unilateral primary osteoarthritis, left knee; M11.262 Other chondrocalcinosis, left knee; M23.42 Loose body in knee, left knee

== ENCOUNTER 2023-10-13 13:27 | Outpatient (CLI) | payer MEDICARE, OTHER ==
--- NOTE | 2023-10-13 15:49 | CT Report ---
PROCEDURE: Lower Extremity LT WO INDICATIONS: L LEG PAIN TECHNIQUE: Noncontrast 3-mm axial sections acquired from the distal tibial shaft to the talar dome, with coronal and sagittal reformats. For radiation dose reduction, the following was used: automated exposure c ontrol, adjustment of mA and/or kV according to patient size. COMPARISON: Left knee radiograph on 10/09/2023. FINDINGS: Image quality: Excellent. 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 No acu te fracture or dislocation of the knee. Joint space of the left knee are well-maintained. Small dista l quadricep enthesophyte. No osteochondral lesion of the patella. No ossified intra-articular body. Soft tissue findings: Small knee effusion. Moderate amount of fluid within the proximal tibiotalar kirstin int. Moderate popliteal cyst. Extensive vascular calcification in the left proximal leg. Capsular ty cification of the suprapatellar recess, the PCL, and the origin of the medial and lateral head of the gastrocnemius, consistent with CPPD arthropathy. The quadriceps and the patellar tendon are grossly intact. Mild prepatellar subcutaneous edema. The P CL is grossly intact. Impression: Extensive CPPD arthropathy as described above. Moderate popliteal cyst. Reviewed by: Laura Vang MD on 10/13/2023 3:48 PM PDT Approved by: Laura Vang MD on 10/13/2023 3:48 PM PDT Station ID: [id number]
== END 2023-10-13 13:28 | disposition home or self-care (01) ==
LOC: DI 13:27
PROVIDERS: ATTEND Physician Assistant Medical
DX: M11.262 Other chondrocalcinosis, left knee (principal); M71.22 Synovial cyst of popliteal space [Baker], left knee; M25.862 Other specified joint disorders, left knee

== ENCOUNTER 2023-11-04 07:42 | Outpatient (CLI) | payer MEDICARE, OTHER | END 2023-11-04 23:59 | disposition EMS.NT | LOC: EMS 07:42 | DX: R58 Hemorrhage, not elsewhere classified (principal) ==

== ENCOUNTER 2023-11-04 15:08 | Outpatient (CLI) | payer MEDICARE, OTHER | END 2023-11-04 23:59 | disposition EMS.NT | LOC: EMS 15:08 | DX: Z48.01 Encounter for change or removal of surgical wound dressing (principal) ==

== ENCOUNTER 2024-02-16 09:51 | Outpatient (CLI) | payer MEDICARE, OTHER ==
[2024-02-16 15:08] LABS: BASOPHILS % (AUTO) 0.4 %; EOSINOPHILS # (AUTO) 0.1 10^3/uL (0.0-0.7); EOSINOPHILS % (AUTO) 0.9 %; HCT - HEMATOCRIT 47.6 % (37.0-47.0); HGB - HEMOGLOBIN 15.5 g/dL (12.0-16.0); LYMPHOCYTES # (AUTO) 2.2 10^3/uL (1.5-3.5); LYMPHOCYTES % (AUTO) 32.6 %; MEAN CORPUSCULAR HEMOGLOBIN 32.7 pg (27.0-31.0); MEAN CORPUSCULAR HGB CONC 32.6 g/dL (32.0-36.0); MEAN CORPUSCULAR VOLUME 100.4 fL (81.0-99.0); MEAN PLATELET VOLUME 11.1 fL (7.9-10.8); MONOCYTES # (AUTO) 0.7 10^3/uL (0.0-1.0); MONOCYTES % (AUTO) 9.7 %; NEUTROPHILS # (AUTO) 3.8 10^3/uL (1.5-6.6); NEUTROPHILS % (AUTO) 56.3 %; PLT - PLATELET COUNT 218 10^3/uL (130-450); RED BLOOD COUNT 4.74 10^6/uL (4.20-5.40); RED CELL DISTRIBUTION WIDTH 12.7 % (12.0-15.0); WHITE BLOOD COUNT 6.8 x10^3/uL (4.8-10.8)
[2024-02-16 15:09] LABS: PARTIAL THROMBOPLASTIN TIME 56.6 secs (24.9-33.3)
[2024-02-16 15:14] LABS: PT - PROTHROMBIN TIME 58.5 secs (9.9-12.6)
[2024-02-16 15:35] LABS: INR 6.1 (0.8-1.2)
[2024-02-16 15:40] LABS: ALBUMIN 4.7 g/dL (3.2-5.5); ALBUMIN/GLOBULIN RATIO 1.6 (1.0-2.2); ALKALINE PHOSPHATASE 56 IU/L (42-121); ALT ALANINE AMINOTRANSFERASE 15 IU/L (10-60); AST ASPARTATE AMINOTRANSFERASE 18 IU/L (10-42); BILIRUBIN,TOTAL 0.5 mg/dL (0.2-1.0); BUN - BLOOD UREA NITROGEN 11 mg/dL (6-20); CALCIUM 9.6 mg/dL (8.5-10.3); CARBON DIOXIDE - CO2 32 mmol/L (21-32); CHLORIDE 101 mmol/L (101-111); CHOL/HDL RATIO 3.5 (<4.4); CHOLESTEROL 183 mg/dL; CREATININE 0.8 mg/dL (0.6-1.3); GFR - MDRD 69 (>89); GLUCOSE 86 mg/dL (74-104); HDL CHOLESTEROL 52 mg/dL; LDL CHOLESTEROL,CALCULATED 94 mg/dL; LDL/HDL RATIO 1.8 (<4.4); POTASSIUM 3.7 mmol/L (3.5-4.5); SODIUM 141 mmol/L (135-145); TOTAL PROTEIN 7.6 g/dL (6.4-8.9); TRIGLYCERIDES 183 mg/dL; VLDL CHOLESTEROL 37 mg/dL
[2024-02-16 15:48] LABS: THYROID STIMULATING HORMONE 4.05 uIU/mL (0.34-5.60)
[2024-02-16 20:42] LABS: ESTIMATED AVERAGE GLUCOSE 123 mg/dL (70-100); HEMOGLOBIN A1c% 5.9 % (4.27-6.07)
== END 2024-02-16 09:52 | disposition home or self-care (01) ==
LOC: LAB.S 09:51
DX: I25.10 Atherosclerotic heart disease of native coronary artery without angina pectoris (principal); R63.4 Abnormal weight loss; Z79.01 Long term (current) use of anticoagulants
CPT/HCPCS: 36415; 80053; 80061; 83036; 83721; 84443; 85025; 85610; 85730

== ENCOUNTER 2024-02-21 08:00 | Outpatient (CLI) | payer MEDICARE, OTHER | END 2024-02-21 23:59 | disposition home or self-care (01) | LOC: LAB.WCP 08:00 | DX: I48.91 Unspecified atrial fibrillation (principal); Z79.01 Long term (current) use of anticoagulants; Z95.2 Presence of prosthetic heart valve ==